=== PATIENT | male | born 1980 | race Caucasian/White ===

== ENCOUNTER 2023-01-18 08:09 | Outpatient (CLI) | payer OTHER, SELFPAY ==
[2023-01-18 20:34] LABS: Hematocrit 48.8 % (42.0-52.0); Hemoglobin 15.7 g/dL (14.0-18.0); Mean Corpuscular HGB Conc 32.2 g/dl (32-36); Mean Corpuscular Hemoglobin 31.9 pg (26-34); Mean Corpuscular Volume 99.2 fl (80-100); Mean Platelet Volume 11.1 fl (7.4-10.4); Platelet Count Result 208 k/mm3 (150-375); Red Blood Count 4.92 M/mm3 (4.6-6.20); Red Cell Distribution Width 12.6 % (11.5-14.5); White Blood Count 6.1 K/mm3 (4.5-10.0)
[2023-01-22 12:49] LABS: Testosterone Total 284 ng/dL (250-1100)
== END 2023-01-18 08:10 | disposition home or self-care (01) ==
PROVIDERS: PCP Nurse Practitioner Adult Health; Visit Provider Nurse Practitioner Adult Health
DX: E29.1 Testicular hypofunction (principal)
CPT/HCPCS: 36415; 84402; 84403; 85027

== ENCOUNTER 2023-07-08 08:01 | Outpatient (CLI) | payer OTHER, SELFPAY ==
[2023-07-08 18:29] LABS: Hematocrit 52.1 % (42.0-52.0); Hemoglobin 16.4 g/dL (14.0-18.0); Mean Corpuscular HGB Conc 31.5 g/dl (32-36); Mean Corpuscular Hemoglobin 31.1 pg (26-34); Mean Corpuscular Volume 98.9 fl (80-100); Mean Platelet Volume 10.7 fl (7.4-10.4); Platelet Count Result 297 k/mm3 (150-375); Red Blood Count 5.27 M/mm3 (4.6-6.20); Red Cell Distribution Width 13.2 % (11.5-14.5); White Blood Count 9.5 K/mm3 (4.5-10.0)
[2023-07-08 18:39] LABS: Alanine Aminotransferase 56 U/L (6-50); Albumin Level 4.6 g/dL (3.5-5.1); Alkaline Phosphatase 60 U/L (38-126); Anion Gap 4 mmol/L (8-16); Aspartate Amino Transferase 74 U/L (17-59); Blood Urea Nitrogen 23 mg/dL (9-20); Calcium 9.4 mg/dL (8.4-10.2); Carbon Dioxide 30 mmol/L (22-30); Chloride 104 mmol/L (98-107); Cholesterol 188 mg/dL (0-200); Estimated Glomerular Filt Rate 55; Glucose 95 mg/dL (65-110); HDL Direct 32 mg/dL; Potassium 4.5 mmol/L (3.4-5.0); Rheumatoid Factor < 12.0 IU/ML (<12); Sodium 138 mmol/L (137-145); Triglycerides 164 mg/dL (<150); Uric Acid 8.7 mg/dL (3.5-8.5)
[2023-07-08 18:50] LABS: LDL Cholesterol Direct 124 mg/dL
[2023-07-08 18:52] LABS: Hemoglobin A1C 5.7 % (<5.7)
[2023-07-13 01:36] LABS: ANA Cascade Screen Negative (Negative)
[2023-07-13 09:03] LABS: Testosterone Free 82.8 pg/mL (35.0-155.0); Testosterone Total 455 ng/dL (250-1100)
[2023-07-16 16:51] LABS: Estrogen 537 pg/mL (< OR = 404)
== END 2023-07-08 08:02 | disposition home or self-care (01) ==
PROVIDERS: PCP Nurse Practitioner Adult Health; Visit Provider Nurse Practitioner Adult Health
DX: E29.1 Testicular hypofunction (principal); Z86.39 Personal history of other endocrine, nutritional and metabolic disease; Z79.890 Hormone replacement therapy; M10.9 Gout, unspecified; E66.9 Obesity, unspecified; R53.83 Other fatigue; Z82.61 Family history of arthritis
CPT/HCPCS: 36415; 80053; 80061; 82607; 82672; 83036; 84153; 84402; 84403; 84443; 84550; 85027; 86038; 86225; 86235; 86364; 86430

== ENCOUNTER 2024-08-01 15:32 | Outpatient (CLI) | payer OTHER, SELFPAY ==
--- OUTSIDE RECORDS SUMMARY | 2024-08-01 18:07 | XMS_ITS | Encounter Summary ---
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
--- OUTSIDE RECORDS SUMMARY | 2024-08-01 18:07 | XMS_ITS | Clinical Summary ---
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 Gender Identity Not on file Sexual Orientation Not on file Last Filed Vital Signs Vital Sign Reading Time Taken Comments Blood Pressure 126/82 06/04/2017 8:01 AM PROCESS HELPER Pulse 68 06/04/2017 8:01 AM PROCESS HELPER Temperature - - Respiratory Rate - - Oxygen Saturation - - Inhaled Oxygen Concentration - - Weight 133.8 kg (295 lb) 06/04/2017 8:01 AM PROCESS HELPER Height 185.4 cm (6' 1 ) 06/04/2017 8:01 AM PROCESS HELPER Body Mass Index 38.92 06/04/2017 8:01 AM PROCESS HELPER Plan of Treatment Health Maintenance Due Date Last Done Comments Colorectal Cancer Screening Colonoscopy (10 Years) 1978 Annual Physical 1981 Hepatitis C 1996 Hepatitis B Vaccines (1 of 3 - 19+ 3-dose series) 1997 COVID-19 Vaccine (2023-2 5 season) 2024 Influenza Adult (#1) 2024 DTaP, Tdap and Td Vaccines ( 2 - Td or Tdap) 05/14/2026 05/14/2016 HPV Vaccines Aged Out No longer eligi ble based on patient's age to complete this topic Meningococcal B Vaccine Aged Out No l onger eligible based on patient's age to complete this topic Meningococcal Vaccine Aged Out No gilmer becky eligible based on patient's age to complete this topic Pneumococcal Vaccine: Pediat rics (0 to 5 Years) and At-Risk Patients (6 to 64 Years) Aged Out No longer eligi ble based on patient's age to complete this topic RSV Immunizations Under 20 Months Aged Out No longer eligible based on patient's age to complete this topic Care Teams Heating Repair Technician Relationship Specialty Start Date End Date Lyndsay Rivera DO [address] [place] [address] PCP - General FAMILY PRACTICE 10/09/15
--- OUTSIDE RECORDS SUMMARY | 2024-08-01 18:07 | XMS_ITS | Clinical Summary ---
Author Organization [facility] Address [address] [facility] [place] [address] Care Team Providers Care Clinical Nursing Director Name Role Phone Rama Samuel MD Primary Care Provider [phone] Source Comments [facility],non-owned Affiliates and Associated Physician Practices is amultiple site organization consisting of ambulatory clinics and hospital sitesin [place], [place], [place] and [place]. This disclosure is being madepursuant to the Care Everywhere program and may not contain all information available regarding this patient. Last updated 18.[facility] Allergies Active Allergy Reactions Criticality Noted Date Comments Codeine Rash Medium 02/09/2018 Medications * Be aware that medications may not be up to date on this document. Alwaysverify current medications with the patient. Medication Sig Dispensed Refills Start Date End Date Status allopurinol (ZYLOPRIM) 300 MG tablet Take 1 tablet by mouth once daily 90 tablet 3 02/09/2018 Active metoprolol tartrate (LOPRESSOR) 25 MG tablet TAKE 1 TABLET BY MOUTH TWICE DAILY 60 tablet 5 08/15/2018 Active omeprazole (PRILOSEC) 40 MG capsule TAKE 1 CAPSULE BY MOUTH DAILY BEFORE BREAKFAST 90 capsule 1 12/13/2018 Active lisinopril (PRINIVIL; ZESTRIL) 20 MG tablet TAKE 1 TABLET BY MOUTH EVERY DAY 90 tablet 1 01/13/2019 Active Active Problems Problem Noted Date Diagnosed Date Chest pain, unspecified 12/14/2018 Essential hypertension 03/13/2018 History of lymphoma 03/13/2018 Family history of hypertrophic cardiomyopathy Gout of multiple sites 03/13/2018 Immunizations Name Administration Dates Next Due INFLUENZA VACCINE, QUADR. (F LUZONE; FLULAVAL; FLUARIX; AFLURIA QUADRIVALENT; 6MO+), 0.5 ML (IIV4) 02/09/2018 TDAP (7yrs+) 06/08/2016 Family History Medical History Relation Name Comments Arthritis - Rheumatoid Father Cancer - Liver Maternal Grandfather Gout Mother Other Mother afib Arthritis - Rheumatoid Paternal Grandmother Relation Name Status Comments Father Alive Maternal Grandfather Mother Paternal Grandmother Social History Tobacco Use Types Packs/Day Years Used Date Smoking Tobacco: Never Smokeless Tobacco: Never Alcohol Use Standard Drinks/Week Comments No 0 (1 standard drink = 0.6 oz pur e alcohol) Sex and Gender Information Value Date Recorded Sex Assigned at Not on file Gender Identity Male 02/09/2018 8:44 AM CDT Sexual Orientation Not on file Last Filed Vital Signs Vital Sign Reading Time Taken Comments Blood Pressure 134/70 12/20/2018 10:33 AM CDT Pulse 65 12/20/2018 10:33 AM CDT Temperature - - Respiratory Rate - - Oxygen Saturation 98% 12/20/2018 10:33 AM CDT Inhaled Oxygen Concentration - - Weight 135.6 kg (299 lb) 12/20/2018 10:33 AM CDT Height 193 cm (6' 4 ) 12/20/2018 10:33 AM CDT Body Mass Index 36.4 12/20/2018 10:33 AM CDT Plan of Treatment Health Maintenance Due Date Last Done Comments COLOGUARD (AGES 45-75) - COL ON CA SCREENING 1978 COLON MONITORING 1978 COLONOSCOPY - COLON CA SCREENING 1978 CT COLONOGRAPHY - COLON CA SCREENING 1978 Colorectal Cancer Screening 1978 FIT - COLON CA SCREENING 1978 FLEX SIG - COLON CA SCREENING 1978 HIV SCREENING 1993 HEPATITIS C SCREENING 07/11/1996 HEPATITIS B VACCINE (1 of 3 - 19+ 3-dose series) 1997 SCREENING FOR DIABETES 12/02/2021 9, 02/09/2018 LIPID TESTING 12/03/2023 12/02/2018, 02/09/2018 COVID-19 VACCINE ( - 2023-2 5 season) 2024 INFLUENZA VACCINE (#1) 2024 02/09/2018 DEPRESSION SCREENING 05/10/2024 DTAP/TDAP/TD VACCINES (2 - T d or Tdap) 06/08/2026 06/08/2016 ZOSTER VACCINE (1 of 2) 2028 HIB VACCINE Aged Out No longer eligi ble based on patient's age to complete this topic HPV VACCINE Aged Out No longer eligi ble based on patient's age to complete this topic MENINGOCOCCAL (Group B) VACCINE SHARED DECISION-MAKING Aged Out No longer eligible based on patient's age to complete this topic MENINGOCOCCAL GROUPS A/C/Y/W VACCINE Aged Out No longer eligible b ased on patient's age to complete this topic PNEUMOCOCCAL VACCINE Aged Out No long er eligible based on patient's age to complete this topic Goals Goal Patient Goal Type Associated Problems Recent Progress Patient-Stated? Author Have labs drawn Lifestyle Juana Van LPN Procedures Procedure Name Priority Date/Time Associated Diagnosis Comments COMPREHENSIVE METABOLIC PANEL Routine 12/02/2018 1:33 PM CDT Essential hypertension LIPID PROFILE Routine 12/02/2018 1:33 PM CDT Essential hypertension from Last 3 Months or Most Recently Relevant to Health Maintenance Results * (ABNORMAL) COMPREHENSIVE METABOLIC PANEL (12/02/2018 1:33 PM CDT) Glucose 116(H) 74 - 106 mg/dL [facility] ACCOUNT BILL BUN 16 8.9 - 20.6 mg/dL [facility] ACCOUNT BILL Creatinine 1.24(H) 0.73 - 1.18 mg/dL [facility] ACCOUNT BILL eGFR by MDRD >60 >60 mL/min/1.7 3m2 [facility] ACCOUNT BILL eGFR by MDRD >60 >60 mL/min/1.7 3m2 [facility] ACCOUNT BILL Sodium 138 136 - 145 mmol/L [facility] ACCOUNT BILL Potassium 4.4 3.5 - 5.1 mmol/L [facility] ACCOUNT BILL Chloride 104 98 - 107 mmol/L [facility] ACCOUNT BILL CO2 23 23 - 31 mmol/L [facility] ACCOUNT BILL Calcium 9.6 8.4 - 10.2 mg/dL [facility] ACCOUNT BILL Protein Total 7.9 6.4 - 8.3 gm/dL [facility] ACCOUNT BILL Albumin 4.8 3.5 - 5.2 gm/dL [facility] ACCOUNT BILL Bilirubin Total 0.5 0.2 - 1.2 mg/dL [facility] ACCOUNT BILL Alkaline Phosphatase 106 40 - 150 U/L [facility] ACCOUNT BILL AST 45(H) 5 - 34 U/L [facility] ACCOUNT BILL ALT 67(H) 13 - 61 U/L [facility] ACCOUNT BILL Blood BLOOD SPECIMEN / Unknown 12/02/2018 1:33 PM CDT 12/02/2018 Narrative Resulting Agency Comment Lab Testing performed at: [address] Abdiel [place]BAR[place] [id number] Rama Samuel MD LAB - CHEMISTRY ALICE SPAULDING [facility] ACCOUNT BILL [address] [place] [address] * (ABNORMAL) LIPID PROFILE (12/02/2018 1:33 PM CDT) Cholesterol 167 <200 mg/dL [facility] ACCOUNT BILL Triglycerides 500(H) <150 mg/dL [facility] ACCOUNT BILL HDL Cholesterol 28(L) >40 mg/dL [facility] ACCOUNT BILL VLDL Calculated <=30 mg/dL [facility] ACCOUNT BILL Comment: Unable to calculate LDL due to elevated Triglycerides, please consider ordering a Direct LDL. Not calculated Unable to calculate LDL due to elevated Triglycerides, please consider ordering a Direct LDL. Unable to calculate LDL due to elevated Triglycerides, please consider ordering a Direct LDL. LDL Calculated <130 mg/dL [facility] ACCOUNT BILL Comment: Not calculated Unable to calculate LDL due to elevated Triglycerides, please consider ordering a Direct LDL. Blood BLOOD SPECIMEN / Unknown 12/02/2018 1:33 PM CDT 12/02/2018 Narrative Resulting Agency Comment Lab Testing performed at: [place] [address] [address] [place] [id number] Rama Samuel MD LAB - CHEMISTRY ALICE S[place]ULDING [facility] ACCOUNT BILL [address] [place] [address] from Last 3 Months or Most Recently Relevant to Health Maintenance Care Teams Clinical Nursing Director Relationship Specialty Start Date End Date Rama Samuel MD [address] [place] [address] PCP - General Family Medicine 09/18/20
--- OUTSIDE RECORDS SUMMARY | 2024-08-01 18:07 | XMS_ITS | Data Portability ---
Author Organization [place] [facility] [employer] Main Office Address [address] [place] [address] Assessment No assessment recorded. Plan of Treatment Reminders Order Date Submit Date Provider Last Modified By Organization Details Last Modified Time Details Appointments None recorded. Lab testosteron e, free + total, serum 2022 023 [facility], [address], [place], [address], 3 17:30:10 CBC w/ auto diff 2022 023 [facility], [address], [place], [address], 3 17:30:12 estradiol, serum 2022 023 [employer], [address], [place], [address], 3 17:34:55 insulin, serum 2022 023 [facility], [address], [place], [address], 3 17:30:12 HbA1c (hemoglobin A1c), blood 2022 023 [facility], [address], [place], [address], 3 17:30:10 CMP, serum or plasma 2022 023 [facility], [address], [place], [address], 3 17:30:12 lipid panel, serum 2022 023 [facility], [address], [place], [address], 3 17:30:09 TSH, serum or plasma 2022 023 [facility], [address], [place], [address], 3 17:38:16 T4, free, serum 2022 023 [facility], [address], [place], [address], 3 17:38:15 dexamethaso ne, serum 2022 023 [facility], [address], [place], [address], 3 00:40:47 cortisol, am, serum 2022 023 [facility], [address], [place], [address], 3 00:40:51 TSH + free T4, serum 2022 023 [facility], [address], [place], [address], 3 00:40:54 thyroid peroxidase (tpo) Ab, serum 2022 023 [facility], [address], [place], [address], 3 00:40:49 T3, free, serum or plasma 2022 023 [facility], [address], [place], [address], 3 00:40:52 insulin, serum 2022 023 [facility], [address], [place], [address], 3 00:40:50 prolactin, serum 2022 023 [facility], [address], [place], [address], 3 00:40:51 testosteron e, free + total, serum 2022 023 [facility], [address], [place], [address], 3 00:40:44 lh + FSH, serum 2022 023 [facility], [address], [place], [address], 3 00:40:53 shbg (sex hormone-bin ding globulin), serum 2022 023 [facility], [address], [place], [address], 3 17:33:16 KEVIN (antinuclea r antibodies) screen, ifa, serum 2022 023 [facility], [address], [place], [address], 3 00:40:49 iron + TIBC + ferritin, serum 2022 023 [facility], [address], [place], [address], 3 00:40:43 hepatitis panel (A+B+C), acute, serum 2022 023 [facility], [address], [place], [address], 3 00:40:44 CMP, serum or plasma 2022 023 [facility], [address], [place], [address], 3 00:40:45 mitochondri al M2 igg Ab, serum 2022 023 [facility], [address], [place], [address], 3 00:40:47 liver-kidne y microsome type 1 igg Ab, serum [address] [facility], [address], [place], [address], 3 00:40:46 CBC w/ auto diff [address] [facility], [address], [place], [address], 3 00:40:48 Referral None recorded. Procedures None recorded. Surgeries None recorded. Imaging US, liver 2022 023 [email or web address] Not available 08:18:10 Medication Orders Contrave 8 mg-90 mg tablet,exte nded release 2022 023 [id number], [address], [place], [id number], 3 17:30:52 metformin ER 500 mg tablet,exte nded release 24 hr 2022 023 [id number], [address], [place], [place], [id number], 3 17:29:15 dexamethaso ne 1 mg tablet 2022 023 [id number], [address], [place], [place], [id number], 3 17:12:14 Patient TargetsNo targets recorded. Patient Instructions Encounter Date Encounter Id Patient Instructions Last Modified By Organization Details Last Modified Time 07/08/2022 [id number] mo fu adhd, htn, lipid, b12 def, testosterone [email or web address] Not available 07/08/2022 18:39:34 Reason for Referral None Reported. Results Created Date Observation Date Name Description Value Unit Range Abnormal Flag Note LastModifiedBy Organization Detail LastModifiedTime 04/23/20 22 04/25/2022 HEMOG LOBIN A1C hemoglobin A1C 5.4 %_of_ total _HGB <5.7 normal For the purpo se of cristofer moore for the prese nce of diabe olesya: <5.7% Consi stent with the absen ce of diabe olesya 5.7-6 .4% Consi stent with incre ased risk for diabe olesya (pred iabet es) > or =6.5% Consi stent with diabe olesya This assay resul t is consi stent with a decre ased risk of diabe olesya. Curre ntly, no conse nsus exist s marlen mccray use of hemog lobin A1c for diagn osis of diabe olesya in child [place]. Accor ding to Ameri can Diabe olesya Assoc iatio n (ADA) guide lines , hemog lobin A1c <7.0% repre sents optim al contr ol in non-p regna nt diabe tic patie nts. Diffe rent metri cs may apply to speci fic patie nt popul ation s. [facility] in Diabe olesya(A DA). Not Available [address] [address] [place], [address], 04/25/2022 01:46:22 04/23/20 22 04/25/2022 VITAM IN D,25- OH,TO SEVERIANO,I A vitamin D,25-oh,tota l,ia 30 NG/mL 30-100 normal Vitam in D Statu s 25-OH Vitam in D: Defic iency : <20 ng/mL Insuf ficie ncy: 20 - 29 ng/mL Optim al: > or = 30 ng/mL For 25-OH Vitam in D testi ng on patie nts on D2-mallory pplem entat ion and patie nts for whom quant itati on of D2 and D3 fract ions is requi red, the [facility] eD(TM ) 25-OH VIT D, (D2,D 3), LC/MS /MS is recom michael d: order code 00384 (viky ents >2yrs ). See Note 1 Note 1 For addit ional infor tarah reyes e refer to http: //[facility] macario Jaquez stDia gnost ics.c om/fa q/FAQ 199 (This link is being provi ded for infor lynda sanders/ shiraz espitia purpo ses only. ) Not Available [address] [address] [place], [address], 04/25/2022 01:46:21 04/23/20 22 04/25/2022 TSH W/REF BOB TO FT4 TSH w/reflex to FT4 1.43 mIU/L 0.40-4 .50 normal Not Available [facility] [address] [address] [place], [address], 04/25/2022 01:46:21 04/23/20 22 04/25/2022 TSH W/REF BOB TO FT4 TSH w/reflex to FT4 1.43 mIU/L 0.40-4 .50 normal Not Available [facility] [address] [address] [place], [address], 04/25/2022 01:46:21 04/23/20 22 04/25/2022 VITAM IN B12/F OLATE , SERUM PANEL vitamin B12 355 pg/mL 200-11 00 normal Pleas e Note: Altho ugh the refer ence range for vitam in B12 is 200-1 100 pg/mL , it has been repor brenda that betwe en 5 and 10% of patie nts with value s betwe en 200 and 400 pg/mL may exper ience neuro psych iatri c and hemat ologi c abnor malit ies due to occul t B12 defic iency ; less than 1% of patie nts with value s above 400 pg/mL will have sympt oms. Not Available [employer] [address], [address], 04/25/2022 01:46:20 04/23/20 22 04/25/2022 VITAM IN B12/F OLATE , SERUM PANEL folate, serum 6.2 NG/mL normal Refer ence Range Low: <3.4 Borde rline : 3.4-5 .4 Johanna l: >5.4 Not Available [employer] [address], [address], 04/25/2022 01:46:20 04/23/20 22 04/25/2022 CBC (INCL UDES DIFF/ PLT) white blood cell count 11.3 thous and/u L 3.8-10 .8 high Not Available [employer] [address], [address], 04/25/2022 01:46:19 04/23/20 22 04/25/2022 CBC (INCL UDES DIFF/ PLT) red blood cell count 5.53 adenike on/uL 4.20-5 .80 normal Not Available [facility] [address], [address], 04/25/2022 01:46:19 04/23/20 22 04/25/2022 CBC (INCL UDES DIFF/ PLT) hemoglobin 16.7 g/dL 13.2-1 7.1 normal Not Available [address], [address], 04/25/2022 01:46:19 04/23/20 22 04/25/2022 CBC (INCL UDES DIFF/ PLT) hematocrit 49.9 % 38.5-5 0.0 normal Not Available [address], [address], 04/25/2022 01:46:19 04/23/20 22 04/25/2022 CBC (INCL UDES DIFF/ PLT) MCV 90.2 fL 80.0-1 00.0 normal Not Available [address], [address], 04/25/2022 01:46:19 04/23/20 22 04/25/2022 CBC (INCL UDES DIFF/ PLT) MCH 30.2 pg 27.0-3 3.0 normal Not Available [address], [address], 04/25/2022 01:46:19 04/23/20 22 04/25/2022 CBC (INCL UDES DIFF/ PLT) MCHC 33.5 g/dL 32.0-3 6.0 normal Not Available [address], [address], 04/25/2022 01:46:19 04/23/20 22 04/25/2022 CBC (INCL UDES DIFF/ PLT) RDW 12.1 % 11.0-1 5.0 normal Not Available [address], [address], 04/25/2022 01:46:19 04/23/20 22 04/25/2022 CBC (INCL UDES DIFF/ PLT) platelet count 230 thous and/u L 140-40 0 normal Not Available [address], [address], 04/25/2022 01:46:19 04/23/20 22 04/25/2022 CBC (INCL UDES DIFF/ PLT) MPV 11.5 fL 7.5-12 .5 normal Not Available [address], [address], 04/25/2022 01:46:19 04/23/20 22 04/25/2022 CBC (INCL UDES DIFF/ PLT) absolute neutrophils 7605 cells /uL 1500-7 800 normal Not Available [address], [address], 04/25/2022 01:46:19 04/23/20 22 04/25/2022 CBC (INCL UDES DIFF/ PLT) absolute lymphocytes 2588 cells /uL 850-39 00 normal Not Available [address], [address], 04/25/2022 01:46:19 04/23/20 22 04/25/2022 CBC (INCL UDES DIFF/ PLT) absolute monocytes 825 cells /uL 200-95 0 normal Not Available [address], [address], 04/25/2022 01:46:19 04/23/20 22 04/25/2022 CBC (INCL UDES DIFF/ PLT) absolute eosinophils 215 cells /uL 15-500 normal Not Available [address], [address], 04/25/2022 01:46:19 04/23/20 22 04/25/2022 CBC (INCL UDES DIFF/ PLT) absolute basophils 68 cells /uL 0-200 normal Not Available [address], [address], 04/25/2022 01:46:19 04/23/20 22 04/25/2022 CBC (INCL UDES DIFF/ PLT) neutrophils 67.3 % normal Not Available [address], [address], 04/25/2022 01:46:19 04/23/20 22 04/25/2022 CBC (INCL UDES DIFF/ PLT) lymphocytes 22.9 % normal Not Available [address], [address], 04/25/2022 01:46:19 04/23/20 22 04/25/2022 CBC (INCL UDES DIFF/ PLT) monocytes 7.3 % normal Not Available [address], [address], 04/25/2022 01:46:19 04/23/20 22 04/25/2022 CBC (INCL UDES DIFF/ PLT) eosinophils 1.9 % normal Not Available [address], [address], 04/25/2022 01:46:19 04/23/20 22 04/25/2022 CBC (INCL UDES DIFF/ PLT) basophils 0.6 % normal Not Available [address], [address], 04/25/2022 01:46:19 04/23/20 22 04/25/2022 CBC (INCL UDES DIFF/ PLT) white blood cell count 11.3 thous and/u L 3.8-10 .8 high Not Available [address], [address], 04/25/2022 01:46:19 04/23/20 22 04/25/2022 CBC (INCL UDES DIFF/ PLT) red blood cell count 5.53 adenike on/uL 4.20-5 .80 normal Not Available [address], [address], 04/25/2022 01:46:19 04/23/20 22 04/25/2022 CBC (INCL UDES DIFF/ PLT) hemoglobin 16.7 g/dL 13.2-1 7.1 normal Not Available [address], [address], 04/25/2022 01:46:19 04/23/20 22 04/25/2022 CBC (INCL UDES DIFF/ PLT) hematocrit 49.9 % 38.5-5 0.0 normal Not Available [address], [address], 04/25/2022 01:46:19 04/23/20 22 04/25/2022 CBC (INCL UDES DIFF/ PLT) MCV 90.2 fL 80.0-1 00.0 normal Not Available [address], [address], 04/25/2022 01:46:19 04/23/20 22 04/25/2022 CBC (INCL UDES DIFF/ PLT) MCH 30.2 pg 27.0-3 3.0 normal Not Available [address], [address], 04/25/2022 01:46:19 04/23/20 22 04/25/2022 CBC (INCL UDES DIFF/ PLT) MCHC 33.5 g/dL 32.0-3 6.0 normal Not Available [address], [address], 04/25/2022 01:46:19 04/23/20 22 04/25/2022 CBC (INCL UDES DIFF/ PLT) RDW 12.1 % 11.0-1 5.0 normal Not Available [address], [address], 04/25/2022 01:46:19 04/23/20 22 04/25/2022 CBC (INCL UDES DIFF/ PLT) platelet count 230 thous and/u L 140-40 0 normal Not Available [address], [address], 04/25/2022 01:46:19 04/23/20 22 04/25/2022 CBC (INCL UDES DIFF/ PLT) MPV 11.5 fL 7.5-12 .5 normal Not Available [address], [address], 04/25/2022 01:46:19 04/23/20 22 04/25/2022 CBC (INCL UDES DIFF/ PLT) absolute neutrophils 7605 cells /uL 1500-7 800 normal Not Available [address], [address], 04/25/2022 01:46:19 04/23/20 22 04/25/2022 CBC (INCL UDES DIFF/ PLT) absolute lymphocytes 2588 cells /uL 850-39 00 normal Not Available [address], [address], 04/25/2022 01:46:19 04/23/20 22 04/25/2022 CBC (INCL UDES DIFF/ PLT) absolute monocytes 825 cells /uL 200-95 0 normal Not Available [address], [address], 04/25/2022 01:46:19 04/23/20 22 04/25/2022 CBC (INCL UDES DIFF/ PLT) absolute eosinophils 215 cells /uL 15-500 normal Not Available [address], [address], 04/25/2022 01:46:19 04/23/20 22 04/25/2022 CBC (INCL UDES DIFF/ PLT) absolute basophils 68 cells /uL 0-200 normal Not Available [address], [address], 04/25/2022 01:46:19 04/23/20 22 04/25/2022 CBC (INCL UDES DIFF/ PLT) neutrophils 67.3 % normal Not Available [address] [place], [address], 04/25/2022 01:46:19 04/23/20 22 04/25/2022 CBC (INCL UDES DIFF/ PLT) lymphocytes 22.9 % normal Not Available [address], [address], 04/25/2022 01:46:19 04/23/20 22 04/25/2022 CBC (INCL UDES DIFF/ PLT) monocytes 7.3 % normal Not Available [address], [address], 04/25/2022 01:46:19 04/23/20 22 04/25/2022 CBC (INCL UDES DIFF/ PLT) eosinophils 1.9 % normal Not Available [address], [address], 04/25/2022 01:46:19 04/23/20 22 04/25/2022 CBC (INCL UDES DIFF/ PLT) basophils 0.6 % normal Not Available [address], [address], 04/25/2022 01:46:19 04/23/20 22 04/25/2022 COMPR EHENS KIRSTEN METAB OLIC PANEL glucose 91 mg/dL 65-99 normal Fasti ng refer ence inter osmin Not Available [address], [address], 04/25/2022 01:46:19 04/23/20 22 04/25/2022 COMPR EHENS KIRSTEN METAB OLIC PANEL urea nitrogen (BUN) 21 mg/dL 7-25 normal Not Available [address], [address], 04/25/2022 01:46:19 04/23/20 22 04/25/2022 COMPR EHENS KIRSTEN METAB OLIC PANEL creatinine 1.48 mg/dL 0.60-1 .29 high Not Available [facility] [address] [address], [place], [address], 04/25/2022 01:46:19 04/23/20 22 04/25/2022 COMPR EHENS KIRSTEN METAB OLIC PANEL eGFR 60 mL/mi n/1.7 3m2 > or = 60 normal The eGFR is based on the CKD-E PI 2020 equat ion. To calcu late the new eGFR from a previ ous Creat inine or Cysta tin C resul t, go to https ://marina w.kmy lópez.o jovita/pr ofess ional s/ kdoqi /gfr% 5Fcal culat or Not Available [address], [address], 04/25/2022 01:46:19 04/23/20 22 04/25/2022 COMPR EHENS KIRSTEN METAB OLIC PANEL BUN/creatini ne ratio 14 (calc ) 6-22 normal Not Available [address], [address], 04/25/2022 01:46:19 04/23/20 22 04/25/2022 COMPR EHENS KIRSTEN METAB OLIC PANEL sodium 138 mmol/ L 135-14 6 normal Not Available [address], [address], 04/25/2022 01:46:19 04/23/20 22 04/25/2022 COMPR EHENS KIRSTEN METAB OLIC PANEL potassium 4.7 mmol/ L 3.5-5. 3 normal Not Available [address], [address], 04/25/2022 01:46:19 04/23/20 22 04/25/2022 COMPR EHENS KIRSTEN METAB OLIC PANEL chloride 101 mmol/ L 98-110 normal Not Available [address], [address], 04/25/2022 01:46:19 04/23/20 22 04/25/2022 COMPR EHENS KIRSTEN METAB OLIC PANEL carbon dioxide 28 mmol/ L 20-32 normal Not Available [address], [address], 04/25/2022 01:46:19 04/23/20 22 04/25/2022 COMPR EHENS KIRSTEN METAB OLIC PANEL calcium 10.0 mg/dL 8.6-10 .3 normal Not Available [address], [address], 04/25/2022 01:46:19 04/23/20 22 04/25/2022 COMPR EHENS KIRSTEN METAB OLIC PANEL protein, total 7.7 g/dL 6.1-8. 1 normal Not Available [address], [address], 04/25/2022 01:46:19 04/23/20 22 04/25/2022 COMPR EHENS KIRSTEN METAB OLIC PANEL albumin 4.9 g/dL 3.6-5. 1 normal Not Available [address], [address], 04/25/2022 01:46:19 04/23/20 22 04/25/2022 COMPR EHENS KIRSTEN METAB OLIC PANEL alkaline phosphatase 58 U/L 36-130 normal Not Available [address], [address], 04/25/2022 01:46:19 04/23/20 22 04/25/2022 COMPR EHENS KIRSTEN METAB OLIC PANEL globulin 2.8 g/dL_ (calc ) 1.9-3. 7 normal Not Available [address], [address], 04/25/2022 01:46:19 04/23/20 22 04/25/2022 COMPR EHENS KIRSTEN METAB OLIC PANEL albumin/glob ulin ratio 1.8 (calc ) 1.0-2. 5 normal Not Available [address], [address], 04/25/2022 01:46:19 04/23/20 22 04/25/2022 COMPR EHENS KIRSTEN METAB OLIC PANEL bilirubin, total 0.7 mg/dL 0.2-1. 2 normal Not Available [address], [address], 04/25/2022 01:46:19 04/23/20 22 04/25/2022 COMPR EHENS KIRSTEN METAB OLIC PANEL AST 37 U/L 10-40 normal Not Available [address], [address], 04/25/2022 01:46:19 04/23/20 22 04/25/2022 COMPR EHENS KIRSTEN METAB OLIC PANEL ALT 52 U/L 9-46 high Not Available [address], [address], 04/25/2022 01:46:19 04/23/20 22 04/25/2022 COMPR EHENS KIRSTEN METAB OLIC PANEL glucose 91 mg/dL 65-99 normal Fasti ng refer ence inter osmin Not Available [address], [address], 04/25/2022 01:46:19 04/23/20 22 04/25/2022 COMPR EHENS KIRSTEN METAB OLIC PANEL urea nitrogen (BUN) 21 mg/dL 7-25 normal Not Available [address], [address], 04/25/2022 01:46:19 04/23/20 22 04/25/2022 COMPR EHENS KIRSTEN METAB OLIC PANEL creatinine 1.48 mg/dL 0.60-1 .29 high Not Available [address], [address], 04/25/2022 01:46:19 04/23/20 22 04/25/2022 COMPR EHENS KIRSTEN METAB OLIC PANEL eGFR 60 mL/mi n/1.7 3m2 > or = 60 normal The eGFR is based on the CKD-E PI 2020 equat ion. To calcu late the new eGFR from a previ ous Creat inine or Cysta tin C resul t, go to https ://marina gottlieb.kym lópez.o jovita/pr ofess ciroal s/ kdoqi /gfr% 5Fcal culat or Not Available [address] [address] [place], [address], 04/25/2022 01:46:19 04/23/20 22 04/25/2022 COMPR EHENS KIRSTEN METAB OLIC PANEL BUN/creatini ne ratio 14 (calc ) 6-22 normal Not Available [address] [address] [place], [address], 04/25/2022 01:46:19 04/23/20 22 04/25/2022 COMPR EHENS KIRSTEN METAB OLIC PANEL sodium 138 mmol/ L 135-14 6 normal Not Available [address], [address], 04/25/2022 01:46:19 04/23/20 22 04/25/2022 COMPR EHENS KIRSTEN METAB OLIC PANEL potassium 4.7 mmol/ L 3.5-5. 3 normal Not Available [address], [address], 04/25/2022 01:46:19 04/23/20 22 04/25/2022 COMPR EHENS KIRSTEN METAB OLIC PANEL chloride 101 mmol/ L 98-110 normal Not Available [address], [address], 04/25/2022 01:46:19 04/23/20 22 04/25/2022 COMPR EHENS KIRSTEN METAB OLIC PANEL carbon dioxide 28 mmol/ L 20-32 normal Not Available [address] [place], [address], 04/25/2022 01:46:19 04/23/20 22 04/25/2022 COMPR EHENS KIRSTEN METAB OLIC PANEL calcium 10.0 mg/dL 8.6-10 .3 normal Not Available [address] [address] [place], [address], 04/25/2022 01:46:19 04/23/20 22 04/25/2022 COMPR EHENS KIRSTEN METAB OLIC PANEL protein, total 7.7 g/dL 6.1-8. 1 normal Not Available [address], [address], 04/25/2022 01:46:19 04/23/20 22 04/25/2022 COMPR EHENS KIRSTEN METAB OLIC PANEL albumin 4.9 g/dL 3.6-5. 1 normal Not Available [address], [address], 04/25/2022 01:46:19 04/23/20 22 04/25/2022 COMPR EHENS KIRSTEN METAB OLIC PANEL alkaline phosphatase 58 U/L 36-130 normal Not Available [address] [address] [place], [address], 04/25/2022 01:46:19 04/23/20 22 04/25/2022 COMPR EHENS KIRSTEN METAB OLIC PANEL globulin 2.8 g/dL_ (calc ) 1.9-3. 7 normal Not Available [address], [address], 04/25/2022 01:46:19 04/23/20 22 04/25/2022 COMPR EHENS KIRSTEN METAB OLIC PANEL albumin/glob ulin ratio 1.8 (calc ) 1.0-2. 5 normal Not Available [address], [address], 04/25/2022 01:46:19 04/23/20 22 04/25/2022 COMPR EHENS KIRSTEN METAB OLIC PANEL bilirubin, total 0.7 mg/dL 0.2-1. 2 normal Not Available [address] [address] [place], [address], 04/25/2022 01:46:19 04/23/20 22 04/25/2022 COMPR EHENS KIRSTEN METAB OLIC PANEL AST 37 U/L 10-40 normal Not Available [address] [address] [place], [address], 04/25/2022 01:46:19 04/23/20 22 04/25/2022 COMPR EHENS KIRSTEN METAB OLIC PANEL ALT 52 U/L 9-46 high Not Available [address] [address] [place], [address], 04/25/2022 01:46:19 04/23/20 22 04/25/2022 LIPID PANEL , [place] LDL-choleste rol 140 mg/dL _(benjy c) high Refer ence range : <100 Jose able range <100 mg/dL for prima ry preve ntion ; <70 mg/dL for patie nts with CHD or diabe tic patie nts with > or = 2 CHD risk facto rs. LDL-C is now calcu lated using the Colleen n-Hop kins calcu juancarlos n, which is a valid ated novel oumar estrella accur acy than the Fried katerina equat ion in the estim ation of LDL-C . Colleen hodges SS et al. MARCIANO. 2013; 310(1 9): 2061- 2068 (http ://ed ucati on.Qu Estefani vitalRange Fuelss. com/f aq/FA Q164) Not Available [address] [address] [place], [address], 04/25/2022 01:46:15 04/23/20 22 04/25/2022 LIPID PANEL , [place] cholesterol, total 212 mg/dL <200 high Not Available [address] [address] [place], [address], 04/25/2022 01:46:15 04/23/20 22 04/25/2022 LIPID PANEL , [place] HDL cholesterol 40 mg/dL > or = 40 normal Not Available [address] [address] [place], [address], 04/25/2022 01:46:15 04/23/20 22 04/25/2022 LIPID PANEL , [place] triglyceride s 186 mg/dL <150 high Not Available [facility] [address] [address] [place], [address], 04/25/2022 01:46:15 04/23/20 22 04/25/2022 LIPID PANEL , [place] chol/HDLC ratio 5.3 (calc ) <5.0 high Not Available [address] [address] [place], [address], 04/25/2022 01:46:15 04/23/20 22 04/25/2022 LIPID PANEL , [place] non HDL cholesterol 172 mg/dL _(benjy c) <130 high For patie nts with diabe olesya plus 1 major ASCVD risk facto r, treat ing to a non-H DL-C goal of <100 mg/dL (LDL- C of <70 mg/dL ) is consi dered a mataa [place] c optio n. Not Available [address] [address] [place], [address], 04/25/2022 01:46:15 04/23/20 22 04/25/2022 LIPID PANEL , [place] chol/HDLC ratio 5.3 (calc ) <5.0 high Not Available [address] [address] [place], [address], 04/25/2022 01:46:15 04/23/20 22 04/25/2022 LIPID PANEL , [place] cholesterol, total 212 mg/dL <200 high Not Available [facility] [address] [address] [address], [place], [address], 04/25/2022 01:46:15 04/23/20 22 04/25/2022 LIPID PANEL , [place] HDL cholesterol 40 mg/dL > or = 40 normal Not Available [facility] [address] [place], [address], 04/25/2022 01:46:15 04/23/20 22 04/25/2022 LIPID PANEL , [place] triglyceride s 186 mg/dL <150 high Not Available [facility] [address] [place], [address], 04/25/2022 01:46:15 04/23/20 22 04/25/2022 LIPID PANEL , [place] LDL-choleste rol 140 mg/dL _(benjy c) high Refer ence range : <100 Jose able range <100 mg/dL for prima ry preve ntion ; <70 mg/dL for patie nts with CHD or diabe tic patie nts with > or = 2 CHD risk facto rs. LDL-C is now calcu lated using the Colleen n-Hop kins margaritou juancarlos n, which is a valid ated novel oumar [place] acy than the Fried k[place]ina equat ion in the estim ation of LDL-C . Colleen hodges SS et al. MARCIANO. 2013; 310(1 9): 2061- 2068 (http ://ed ucati on.Qu Estefani linder tics. com/f aq/FA Q164) Not Available [facility] [address] [address], [place], [address], 04/25/2022 01:46:15 04/23/20 22 04/25/2022 LIPID PANEL , [place] non HDL cholesterol 172 mg/dL _(benjy c) <130 high For patie nts with diabe olesya plus 1 major ASCVD risk facto r, treat ing to a non-H DL-C goal of <100 mg/dL (LDL- C of <70 mg/dL ) is consi dered a thera peuti c optio n. Not Available [address] [address] [place], [address], 04/25/2022 01:46:15 07/30/19 23 08/09/2022 IRON, TIBC AND LEVI TIN PANEL iron, total 142 mcg/d L 50-180 normal Not Available [address] [address] [place], [address], 08/10/2022 00:40:43 07/30/19 23 08/09/2022 IRON, TIBC AND LEVI TIN PANEL iron binding capacity 376 mcg/d L_(ca lc) 250-42 5 normal Not Available [address] [address] [place], [address], 08/10/2022 00:40:43 07/30/19 23 08/09/2022 IRON, TIBC AND LEVI TIN PANEL % saturation 38 %_(ca lc) 20-48 normal Not Available [address] [address] [place], [address], 08/10/2022 00:40:43 07/30/19 23 08/09/2022 IRON, TIBC AND LEVI TIN PANEL ferritin 192 NG/mL 38-380 normal Not Available [address] [address] [place], [address], 08/10/2022 00:40:43 07/30/19 23 08/09/2022 HEPAT ITIS PANEL , ACUTE W/REF BOB TO CONFI RMATI ON hepatitis A IgM NON-RE ACTIVE non-re active normal For addit ional infor tarah reyes e refer to http: //rick barahona gnost ics.c om/fa q/FAQ (This link is being provi ded for infor lynda sanders/ shiraz espitia purpo ses only. ) Not Available [address] [address] [place], [address], 08/10/2022 00:40:44 07/30/19 23 08/09/2022 HEPAT ITIS PANEL , ACUTE W/REF BOB TO CONFI RMATI ON hepatitis B surface antigen NON-RE ACTIVE non-re active normal Not Available [address] [address] [place], [address], 08/10/2022 00:40:44 07/30/19 23 08/09/2022 HEPAT ITIS PANEL , ACUTE W/REF BOB TO CONFI RMATI ON hepatitis B core antibody (IgM) NON-RE ACTIVE non-re active normal Not Available [facility] [address] [address] [place], [address], 08/10/2022 00:40:44 07/30/1908/09/2022 HEPAT ITIS PANEL , ACUTE W/REF BOB TO CONFI RMATI ON hepatitis C antibody NON-RE ACTIVE non-re active normal Not Available [facility] [address] [place], [address], 08/10/2022 00:40:44 07/30/1908/09/2022 HEPAT ITIS PANEL , ACUTE W/REF BOB TO CONFI RMATI ON index 0.12 <1.00 normal HCV antib roro was non-r eacti ve. There is no labor atory evide nce of HCV infec tion. In most cases , no furth er actio n is requi red. Howev er, if recen t HCV expos ure is suspe cted, a test for HCV RNA (test code 81793 ) is sugge sted. For addit ional infor lynda hodges pleas e refer to http: //[facility] macario jaquez stdia gnost ics.c om/fa q/FAQ 22v1 (This link is being provi ded for infor lynda sanders/ educa kalee l purpo ses only. ) Not Available [address] [address] [place], [address], 08/10/2022 00:40:44 07/30/1908/09/2022 TESTO STERO NE, FREE, BIOAV AILAB LE AND TOTAL , MS albumin 4.8 g/dL 3.6-5. 1 Not Available [address], [address], 08/10/2022 00:40:44 07/30/19 23 08/09/2022 TESTO STERO NE, FREE, BIOAV AILAB LE AND TOTAL , MS sex hormone binding globulin 25.1 nmol/ L 10-50 Not Available [address], [address], 08/10/2022 00:40:44 07/30/19 23 08/09/2022 TESTO STERO NE, FREE, BIOAV AILAB LE AND TOTAL , MS testosterone , free 111.8 pg/mL 46.0-2 24.0 Not Available [address], [address], 08/10/2022 00:40:44 07/30/19 23 08/09/2022 TESTO STERO NE, FREE, BIOAV AILAB LE AND TOTAL , MS testosterone ,bioavailabl e 244.5 NG/dL 110.0- 575.0 Not Available [address], [address], 08/10/2022 00:40:44 07/30/19 23 08/09/2022 TESTO STERO NE, FREE, BIOAV AILAB LE AND TOTAL , MS testosterone , total, MS 649 NG/dL 250-11 00 For addit ional tarah barber e refer to https ://ed ucati on.qu estdi Handpressions. com/f aq/FA Q165 (This link is being provi ded for eve howell nal/e ducat ional purpo ses only. ) (Note ) This test was devel oped and its suzi tical perfo rmanc e luis cteri stics have been deter mined by [employer]. It has not been clear ed or appro shanice by the FDA. This assay has been valid ated pursu ant to the CLIA regul ation s and is used for clini benjy purpo ses. MDF med fusio n [address] [facility] [address] [place] [address] [phone] Warren reyes MD Not Available [address] [address] [place], [address], 08/10/2022 00:40:44 07/30/19 23 08/09/2022 COMPR EHENS KIRSTEN METAB OLIC PANEL glucose 94 mg/dL 65-139 normal Non-f astin g refer ence inter osmin Not Available [facility] [address] [address] [place], [address], 08/10/2022 00:40:45 07/30/19 23 08/09/2022 COMPR EHENS KIRSTEN METAB OLIC PANEL urea nitrogen (BUN) 25 mg/dL 7-25 normal Not Available [address] [address] [place], [address], 08/10/2022 00:40:45 07/30/19 23 08/09/2022 COMPR EHENS KIRSTEN METAB OLIC PANEL creatinine 1.40 mg/dL 0.60-1 .29 high Not Available [address] [address] [place], [address], 08/10/2022 00:40:45 07/30/19 23 08/09/2022 COMPR EHENS KIRSTEN METAB OLIC PANEL eGFR 64 mL/mi n/1.7 3m2 > or = 60 normal The eGFR is based on the CKD-E PI 2020 equat ion. To calcu late the new eGFR from a previ ous Creat inine or Cysta dedra C suri t, go to https ://marina hussein/harry raymundo s/ kdoqi /gfr% 5Fcal culat or Not Available [address] [address] [place], [address], 08/10/2022 00:40:45 07/30/19 23 08/09/2022 COMPR EHENS KIRSTEN METAB OLIC PANEL BUN/creatini ne ratio 18 (calc ) 6-22 normal Not Available [address], [address], 08/10/2022 00:40:45 07/30/19 23 08/09/2022 COMPR EHENS KIRSTEN METAB OLIC PANEL sodium 135 mmol/ L 135-14 6 normal Not Available [address], [address], 08/10/2022 00:40:45 07/30/19 23 08/09/2022 COMPR EHENS KIRSTEN METAB OLIC PANEL potassium 5.1 mmol/ L 3.5-5. 3 normal Not Available [address], [address], 08/10/2022 00:40:45 07/30/19 23 08/09/2022 COMPR EHENS KIRSTEN METAB OLIC PANEL chloride 101 mmol/ L 98-110 normal Not Available [address], [address], 08/10/2022 00:40:45 07/30/19 23 08/09/2022 COMPR EHENS KIRSTEN METAB OLIC PANEL carbon dioxide 26 mmol/ L 20-32 normal Not Available [address], [address], 08/10/2022 00:40:45 07/30/19 23 08/09/2022 COMPR EHENS KIRSTEN METAB OLIC PANEL calcium 9.9 mg/dL 8.6-10 .3 normal Not Available [address], [address], 08/10/2022 00:40:45 07/30/19 23 08/09/2022 COMPR EHENS KIRSTEN METAB OLIC PANEL protein, total 7.8 g/dL 6.1-8. 1 normal Not Available [address], [address], 08/10/2022 00:40:45 07/30/19 23 08/09/2022 COMPR EHENS KIRSTEN METAB OLIC PANEL albumin 4.7 g/dL 3.6-5. 1 normal Not Available [address], [address], 08/10/2022 00:40:45 07/30/19 23 08/09/2022 COMPR EHENS KIRSTEN METAB OLIC PANEL globulin 3.1 g/dL_ (calc ) 1.9-3. 7 normal Not Available [address], [address], 08/10/2022 00:40:45 07/30/19 23 08/09/2022 COMPR EHENS KIRSTEN METAB OLIC PANEL albumin/glob ulin ratio 1.5 (calc ) 1.0-2. 5 normal Not Available [address], [address], 08/10/2022 00:40:45 07/30/19 23 08/09/2022 COMPR EHENS KIRSTEN METAB OLIC PANEL bilirubin, total 0.7 mg/dL 0.2-1. 2 normal Not Available [address], [address], 08/10/2022 00:40:45 07/30/19 23 08/09/2022 COMPR EHENS KIRSTEN METAB OLIC PANEL alkaline phosphatase 59 U/L 36-130 normal Not Available [address] [address] [place], [address], 08/10/2022 00:40:45 07/30/19 23 08/09/2022 COMPR EHENS KIRSTEN METAB OLIC PANEL AST 25 U/L 10-40 normal Not Available [address], [address], 08/10/2022 00:40:45 07/30/19 23 08/09/2022 COMPR EHENS KIRSTEN METAB OLIC PANEL ALT 38 U/L 9-46 normal Not Available [address] [address] [place], [address], 08/10/2022 00:40:45 07/30/19 23 08/09/2022 LIVER KIDNE Y MICRO SOME (LKM- 1) AB (IGG) lkm-1 antibody (IgG) <=20.0 U <=20.0 Refer ence Range : <=20. 0 Negat kirsten 20.1- 24.9 Equiv ocal >=25. 0 Posit kirsten Anti- liver /kidn ey micro somal antib odies (Anti -LKM- 1) were previ ously teste d by indir ect immun ofluo resce nce (IF) using tam t liver /kidn ey subst rate. Ident ifica tion of a speci fic antib roro targe t as cytoc hrome P450 IID6 has led to the curre nt recom binan t based GOMEZ . Antib odies to this cytoc hrome are prese nt in appro ximat kae 70% of patie nts with autoi mmune hepat itis type 2. This antib roro is also prese nt in appro ximat kae 10% of patie nts with hepat itis C infec tion. Not Available [address] [address] [place], [address], 08/10/2022 00:40:46 07/30/1908/09/2022 MITOC HONDR IA M2 ANTIB RORO (IGG) , EIA mitochondria M2 antibody (IgG), EIA <20.0 U Refer ence Range : NEGAT KIRSTEN: < OR = 20.0 EQUIV OCAL: 20.1- 24.9 POSIT KIRSTEN: > OR = 25.0 Not Available [address] [address] [place], [address], 08/10/2022 00:40:47 07/30/19 23 08/09/2022 DEXAM ETHAS ONE dexamethason e 354 NG/dL Refer ence Range s for Dexam ethas one: Basel ine: Less than 20 ng/dL 1 mg dexam ethas one overn ight: 180-5 50 ng/dL (8:00 -10:0 0 AM) This test was ankita daniels and its suzi tical perfo rmanc e luis cteri stics have been deter mined by [facility] . It has not been clear ed or appro shanice by FDA. This assay has been valid ated pursu ant to the CLIA regul ation s and is used for clini benjy purpo ses. Not Available [employer] [address], [address], 08/10/2022 00:40:47 07/30/19 23 08/09/2022 CBC (INCL UDES DIFF/ PLT) white blood cell count 8.6 thous and/u L 3.8-10 .8 normal Not Available [employer] [address], [address], 08/10/2022 00:40:48 07/30/19 23 08/09/2022 CBC (INCL UDES DIFF/ PLT) red blood cell count 5.92 adenike on/uL 4.20-5 .80 high Not Available [employer] [address], [address], 08/10/2022 00:40:48 07/30/19 23 08/09/2022 CBC (INCL UDES DIFF/ PLT) hemoglobin 17.5 g/dL 13.2-1 7.1 high Not Available [employer] [address], [address], 08/10/2022 00:40:48 07/30/19 23 08/09/2022 CBC (INCL UDES DIFF/ PLT) hematocrit 53.1 % 38.5-5 0.0 high Not Available [facility] [address], [address], 08/10/2022 00:40:48 07/30/19 23 08/09/2022 CBC (INCL UDES DIFF/ PLT) MCV 89.7 fL 80.0-1 00.0 normal Not Available [address], [address], 08/10/2022 00:40:48 07/30/19 23 08/09/2022 CBC (INCL UDES DIFF/ PLT) MCH 29.6 pg 27.0-3 3.0 normal Not Available [address], [address], 08/10/2022 00:40:48 07/30/1908/09/2022 CBC (INCL UDES DIFF/ PLT) MCHC 33.0 g/dL 32.0-3 6.0 normal Not Available [address], [address], 08/10/2022 00:40:48 07/30/19 23 08/09/2022 CBC (INCL UDES DIFF/ PLT) RDW 11.8 % 11.0-1 5.0 normal Not Available [address], [address], 08/10/2022 00:40:48 07/30/1908/09/2022 CBC (INCL UDES DIFF/ PLT) platelet count 241 thous and/u L 140-40 0 normal Not Available [address], [address], 08/10/2022 00:40:48 07/30/19 23 08/09/2022 CBC (INCL UDES DIFF/ PLT) MPV 11.7 fL 7.5-12 .5 normal Not Available [address], [address], 08/10/2022 00:40:48 07/30/19 23 08/09/2022 CBC (INCL UDES DIFF/ PLT) absolute neutrophils 6132 cells /uL 1500-7 800 normal Not Available [address], [address], 08/10/2022 00:40:48 07/30/19 23 08/09/2022 CBC (INCL UDES DIFF/ PLT) absolute lymphocytes 1797 cells /uL 850-39 00 normal Not Available [address], [address], 08/10/2022 00:40:48 07/30/19 23 08/09/2022 CBC (INCL UDES DIFF/ PLT) absolute monocytes 542 cells /uL 200-95 0 normal Not Available [address], [address], 08/10/2022 00:40:48 07/30/19 23 08/09/2022 CBC (INCL UDES DIFF/ PLT) absolute eosinophils 86 cells /uL 15-500 normal Not Available [address], [address], 08/10/2022 00:40:48 07/30/19 23 08/09/2022 CBC (INCL UDES DIFF/ PLT) absolute basophils 43 cells /uL 0-200 normal Not Available [address], [address], 08/10/2022 00:40:48 07/30/19 23 08/09/2022 CBC (INCL UDES DIFF/ PLT) neutrophils 71.3 % normal Not Available [address], [address], 08/10/2022 00:40:48 07/30/19 23 08/09/2022 CBC (INCL UDES DIFF/ PLT) lymphocytes 20.9 % normal Not Available [address], [address], 08/10/2022 00:40:48 07/30/19 23 08/09/2022 CBC (INCL UDES DIFF/ PLT) monocytes 6.3 % normal Not Available [facility] [address] [address] [address], [place], [address], 08/10/2022 00:40:48 07/30/1908/09/2022 CBC (INCL UDES DIFF/ PLT) eosinophils 1.0 % normal Not Available [facility] [address] [address], [place], [address], 08/10/2022 00:40:48 07/30/19 23 08/09/2022 CBC (INCL UDES DIFF/ PLT) basophils 0.5 % normal Not Available [facility] [address] [address], [place], [address], 08/10/2022 00:40:48 07/30/1908/09/2022 KEVIN SCREE N, IFA, W/REF L TITER AND PATTE RN KEVIN screen, ifa NEGATI VE negati ve normal KEVIN IFA is a first line scree n for detec ting the prese nce of up to appro ximat kae 150 autoa ntibo dies in vario us autoi mmune disea ses. A negat kirsten KEVIN IFA resul t sugge sts an KEVIN-a ssoci ated autoi mmune disea se is not prese nt at this time, but is not defin itive . If there is high clini benjy suspi cion for Sjogr en's syndr ome, testi ng for anti- SS-A/ Ro antib roro shoul d be consi dered . Anti- Shantell-1 antib roro shoul d be consi dered for clini shay suspe cted infla mmato ry myopa nakia . AC-0: Negat kirsten Inter natio nal Conse nsus on KEVIN Patte rns (http s://d oi.or g/10. 1515/ [facility]- 0052) For addit ional infor tarah reyes e refer to http: //rick hodges.Que stDia gnost ics.c om/fa q/FAQ 177 (This link is being provi ded for infor lynda sanders/ educa kalee l purpo ses only. ) Not Available [facility] [address], [place], [address], 08/10/2022 00:40:49 07/30/1908/09/2022 THYRO ID PEROX IDASE ANTIB ODIES thyroid peroxidase antibodies 1 IU/mL <9 normal Not Available [facility] [address], [address], 08/10/2022 00:40:49 07/30/1908/09/2022 INSUL IN insulin 44.5 uIU/m L high Refer ence Range < or = 18.4 Risk: Optim al < or = 18.4 Moder ate NA High >18.4 Adult cardi ovasc ular event risk categ ory cut point s (opti mal, moder ate, high) are based on Insul in Refer ence Inter osmin studi es perfo rmed at [facility] in 2021. Not Available [facility] [address], [address], 08/10/2022 00:40:50 07/30/1908/09/2022 PROLA CTIN prolactin 6.1 NG/mL 2.0-18 .0 normal Not Available [facility] [address], [address], 08/10/2022 00:40:51 07/30/1908/09/2022 CORTI VALENTINO, A.M. cortisol, A.M. 0.9 mcg/d L low Refer ence Range 8 a.m. (7-9 a.m.) Speci men: 4.0-2 2.0 Not Available [facility] [address], [address], 08/10/2022 00:40:51 07/30/19 23 08/09/2022 T3, FREE T3, free 3.5 pg/mL 2.3-4. 2 normal Not Available [facility] [address], [address], 08/10/2022 00:40:52 07/30/19 23 08/09/2022 FSH AND LH FSH <0.7 mIU/m L 1.6-8. 0 low Not Available [address], [address], 08/10/2022 00:40:53 07/30/1908/09/2022 FSH AND LH LH <0.2 mIU/m L 1.5-9. 3 low Not Available [address], [address], 08/10/2022 00:40:53 07/30/1908/09/2022 TSH+F REE T4 TSH 0.93 mIU/L 0.40-4 .50 normal Not Available [address], [address], 08/10/2022 00:40:53 07/30/1908/09/2022 TSH+F REE T4 T4, free 1.3 NG/dL 0.8-1. 8 normal Not Available [address], [address], 08/10/2022 00:40:53 Result Notes None recorded. 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 Active 2021 Not Available [facility] 3 10:43:21 Leukocytosis 239683117 Active 2021 Not Available [facility] 3 10:43:21 Testosterone level below reference range 002108719 Active 2020 Not Available [facility] 3 10:43:21 Body mass index 30+ - obesity 775087273 Active 2020 Not Available [facility] 3 10:43:21 Insomnia 676135683 Active 2021 Not Available [facility] 3 10:43:21 Gastro-esopha geal reflux disease with esophagitis 453576105 Active 2020 Not Available [facility] 3 10:43:21 Attention deficit hyperactivity disorder, 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 Not Available [facility] 3 10:43:22 Hypertensive disorder 71221410 Active 2020 Not Available [facility] 3 10:43:22 Male hypogonadism 19895635 Active 2020 Not Available [facility] 3 10:43:22 Hyperlipidemi a 46367624 Active 2021 Not Available [facility] 3 10:43:22 Unable to concentrate 11750094 Active 2021 Not Available [facility] 3 10:43:22 Weight gain 8418612 Active 2022 Birgit Fajardo MD [address], [place], [address] , [facility] [employer] 3 17:29:45 Liver enzymes level above reference range 759192817 Active 2022 Birgit Fajardo MD [address], [place], [address] , [employer] 3 17:37:39 Erythrocytosi s 713931899 Active 2022 Birgit Fajardo MD [address], [place], [address] , [facility] [employer] [facility] [employer] 3 11:38:18 Hyperinsulini sm 17513807 Active 2022 Birgit Fajardo MD [address], [place], [address] , [employer] [facility] [employer] 3 17:25:59 Prediabetes 515569620 Active 2022 Birgit Fajardo MD [address], [place], [address] , [facility] [employer] [facility] [employer] 3 17:29:16 Problem Notes Documentation Provider Name and Address Organization Details Recorded Time Endocrinology Note : [facility] [address], [facility] [address]XUPQLOGS, Christopher (id #[id number], : 1980) Documents sent via fax will include the following message: This fax may contain sensitive and confidential personal health information that is being sent for the sole use of the intended recipient. Unintended recipients are directed to securely destroy any materials received. You are hereby notified that the unauthorized disclosure or other unlawful use of this fax or any personal health information is prohibited. To the extent patient information contained in this fax is subject to 42 CFR Part 2, this regulation prohibits unauthorized disclosure of these records. If you received this fax in error, please visit [email or web address] to notify the sender and confirm that the information will be destroyed. If you do not have internet access, please call to notify the sender and confirm that the information will be destroyed. Thank you for your attention and cooperation. [ID:[id number]][facility] [employer] [facility] [address] [place] [address] , Date: 07/13/2022RE: Aldo Lea, : 1980, PT ID #[id number] Fior [facility], I would like to thank you for referring Aldo Lea to our practice for consultation and evaluation of new patient , on 07/13/2022. I have enclosed a copy of the office evaluation for your records. Once again, thank you for allowing me to participate in the care of this patient. Sincerely, Electronically Signed by: BIRGIT FAJARDO MD Encounter Reason/Date new patient 07/13/2022 - 04:00PM [facility] Rashmi Sumit Infante Problems:Reviewed Problems T-cell lymphoma (clinical) - Onset: 04/22/2022 Male hypogonadism - Onset: 02/13/2021 Hyperlipidemia - Onset: 04/28/2022 Body mass index 30+ - obesity - Onset: 04/30/2021 Leukocytosis - Onset: 04/28/2022 Insomnia - Onset: 04/22/2022 Hypertensive disorder - Onset: 02/03/2021 Gastro-esophageal reflux disease with esophagitis - Onset: 02/03/2021 Decreased testosterone level - Onset: 04/30/2021 Unable to concentrate - Onset: 05/27/2021 Attention deficit hyperactivity disorder, 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 Weight gain - Onset: 07/13/2022 Elevated liver enzymes level - Onset: 07/13/2022 Allergies: Reviewed Allergies CODEINE: - rash Medications: Reviewed Medications NameDate Source dexAMETHasone 1 mg tablettake dexa tablet at 10 pm night before 8 am kxmvvzke64/06/23 prescribed Birgit Fajardo MD dextroamphetamine-amphetamin e 30 mg tabletTake 1 tablet(s) every day by oral route.06/24/22 filled MIGRATION.[id number] lisinopriL 20 mg tabletTAKE 1 TABLET BY MOUTH EVERY DAY05/12/22 filled MIGRATION.[id number] omeprazole 40 mg capsule,delayed releaseTAKE 1 CAPSULE BY MOUTH DAILY05/13/22 filled MIGRATION.[id number] Vitamin B1207/13/22 entered Josefa Velasquez RN Family History:Reviewed Family History Father - No current problems or disability Mother - Heart disease Social History:Reviewed Social History Diet and ExerciseWhat type of diet are you following?: RegularDo you have any dietary restrictions?: NoWhat is your exercise level?: Moderate (Notes: 5 days a week)Substance UseDo you or have you ever smoked tobacco?: Never smokerDo you or have you ever used any other forms of tobacco or nicotine?: NoHas tobacco cessation counseling been provided?: NoWhat is your level of alcohol consumption?: OccasionalHave you ever been counseled for unhealthy alcohol use?: NoDo you use any illicit or recreational drugs?: NoWhat is your level of caffeine consumption?: ModerateHome and EnvironmentWhere do you live?: Multi-level houseDo you have smoke and carbon monoxide detectors in your home?: YesAre you passively exposed to smoke?: NoDo you use sunscreen routinely?: YesAdvance DirectiveDo you have an advance directive?: NoWhat is your code status?: Full CodeDo you have a medical power of civil rights attorney?: NoPublic Health and TravelHave you recently traveled abroad?: NoIn the 14 days before symptom onset, have you had close contact with a laboratory-confirmed COVID-19 while that case was ill?: NoIn the 14 days before symptom onset, have you had close contact with a person who is under investigation for COVID-19 while that person was ill?: NoEducation and OccupationWhat is your 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 testosterone on file at 1114 ng/dL from 12/21H/H 17/49.9 He was initially seeing Krystal Manjarrez NP in the past- he is not able to get under 260 pounds. The lowest weight he has ever been is 258 pounds and now up to 284 pounds He is very active at work and does work out regularly. He also diets. He was on 6 months of wegovy- and maxed out at 2.4 mg - started at 270 pounds and only able to get down to 260 pounds. He did try phentermine with the wegovy and did not really help later on-the first time he tried this he did respond. He has a high tolerance for caffeine. He was on vyvanse and then insurance changed and stopped this and onto adderall. The only thing he has noticed - tracking food and macros - if he kept his carbs under 100 grams a day he does well but if over 100 grams a day ends up craving more carbs. He did keto diet in the past and only got down to 260 pounds. He has always been on the larger side- he would like to get down to 250 pounds. He never care about the scales and unable to get lower than 260 pounds. 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 He has been off work for one month. He is at the gym 5-6 days a week. He did initially try lower weight/and pliometrics initially then went to heavy weight. He does get testosterone therapy through his urologist /Dr. Ramírez- takes anastrazole every other week and shot 0.8 cc IM every week. testosterone 390 ng/dL from 07/29/79303/186/40/140Cr 1.48 mg/dLcal 10 mg/dLALT high at 52 U/LH/H 16.7/49.9B12/folate 355/6.2TSH of 1.43 uIU/mlReview of Systems: Patient reports normal appetite, no significant weight change, exercise; how often? , and no decrease in height. He reports no double vision (diplopia), no trouble with peripheral vision, not bulging (proptosis), no dry eyes, and no gritty eyes. He reports no difficulty swallowing (dysphagia), no hoarseness, no voice changes, no deepening of the voice, no lump or swelling, and no throat/neck pain. He reports no chest pain, no racing heart rate, and controlled blood pressure. He reports no shortness of breath, no snoring, and no sleep apnea. He reports no urinary frequency, not getting up at night to use bathroom, and no history of kidney stones. He reports no abdominal pain, no diarrhea, no constipation, no heartburn, no rectal bleeding, and does not use antacids. He reports no muscle weakness, no muscle aches, no joint pain, no bone pain, and no bone fractures. He reports able to brush hair without difficulty and able to get out of chair independently. He reports no dry skin, no thin skin, no bruising tendency, no acne, no purple stretch crawford, no brittle nails, and no recurrent infections or slow healing wounds. He reports no low blood sugars, no excessive thirst (polydipsia), not tired all the time, no increased hair growth (on face, chest, etc.), no hair falling out, no trouble sleeping, no temperature intolerance to heat, and no temperature intolerance to cold. He reports complies with diabetic diet, eats milk, cheese, or yogurt daily, calcium supplement, takes multivitamin, and vitamin D supplement. He reports no headaches, no confusion, no dizziness, no lightheadedness, no numbness or tingling in hands or feet, no night sweats, no confusion during middle of night, no excessive sweating, hands don't shake, and no frequent falls while walking. He reports no anxiety and no depression. He reports no trouble conceiving, no low sex drive or libido, able to reach orgasm, no painful intercourse, no hot flashes, no erectile dysfunction, no leakage of milk from nipples, and no vaginal dryness. Physical ExamConstitutional:General Appearance: not anxious/nervous, no sweating, andoverweight. Level of Distress: no acute distress. Eyes:Lids and Conjunctivae: no discharge, pallor, lid lag, or periorbital edema and non-injected. Neck:Neck: supple, trachea midline, no masses, and full range of motion. Thyroid: no enlargement or nodules and non-tender. Neck vessels: no carotid bruits or thyroid bruits. Lymph Nodes: no anterior cervical LAD, posterior cervical LAD, submandibular LAD, submental LAD, preauricular LAD, or supraclavicular LAD. Cardiovascular:Apical Impulse: not displaced. Heart Auscultation: normal S1 and S2; no murmurs, rubs, or gallops; and regular rate and rhythm. Lungs:Auscultation: no wheezing, rales/crackles, or rhonchi and breath sounds normal, good air movement, and clear to auscultation. Psychiatric:Mental Status: normal mood and affect, no diffuse anxiety or paranoid ideations, and active and alert.Procedure DocumentationNone recordedAssessment/Plan1. Weight gain-Will send for low dose dexa suppression testing to screen for hypercortisolic state. Will send for full thyroid panel and fasting glucose/insulin to screen for hyperinsulinemia as he has struggled to lose weight over the past 4-5 years (daughter is 4 years old now)- even on testosterone therapy he has not been able to lose the belly fat and hasn't gotten under 260 pounds. Will look into full hormone panel to assess for secondary causes of weight gain.R63.5: Abnormal weight gain DEXAMETHASONE dexamethasone 1 mg tablet - take dexa tablet at 10 pm night before 8 am cortisol Qty: (1) tablet Refills: 1 Pharmacy: [facility] #[id number] CORTISOL, A.M. TSH+FREE T4 THYROID PEROXIDASE ANTIBODIES T3, FREE INSULIN 2. Male hypogonadism-Send for full pituitary profile and SHBG to see if he has any underlying hyperprolactinemia or FSH/LH elevation that would warrant further imaging or workup. He was /is getting T therapy through Dr. Ramírez but as [facility] pay only and to note his H/H levels are higher range and ALT elevated on most recent labwork recommended patient obtain an iron panel and liver function profile.E29.1: Testicular hypofunction PROLACTIN TESTOSTERONE, FREE, BIOAVAILABLE AND TOTAL, MS FSH AND LH SEX HORMONE BINDING GLOBULIN 3. Elevated liver enzymes level-Send for liver u/s and autoimmune liver panel to screen for secondary causes of liver elevation. Spent up to 45 minutes preparing to see the patient (eg, review of tests), obtaining and/or reviewing separately obtained history, performing a medically appropriate examination and evaluation, counseling and educating the patient, ordering medications, tests, along with documenting clinical information in the electronic health record, independently interpreting results and communicating results to the patient. RTC in 3 months. Patient was provided a handwritten lab order which contains our fax number. If he chooses to go outside of the [facility] system to obtain labwork he was advised to provide our fax number and my information to the lab he will be obtaining labwork from in order to have his labs properly forwarded over for me to review so there is no loss of follow up due to use of outside network. He was also advised to contact our clinic informing us that he has completed his labwork so we are aware we will need to reach out to the appropriate laboratory to request his results be forwarded to us so I might have the ability to review and make further medical decision making in his case. He voiced understanding. Thank you for this consultation.R74.01: Elevation of levels of liver transaminase levels US, LIVER KEVIN SCREEN, IFA, W/REFL TITER AND PATTERN IRON, TIBC AND FERRITIN PANEL HEPATITIS PANEL, ACUTE W/REFLEX TO CONFIRMATION COMPREHENSIVE METABOLIC PANEL MITOCHONDRIA M2 ANTIBODY (IGG), EIA LIVER KIDNEY MICROSOME (LKM-1) AB (IGG) CBC (INCLUDES DIFF/PLT) Return to Office Birgit Fajardo MD for Follow Up 15 at [facility] Rashmi Infante on 10/15/2022 at 03:45 PM to see Amberly Childress NP for Follow Up 15 at [facility] on or around 11/06/2022 Amberly Childress NP [address] [place] [address], [facility] [address], [place], [address], [place] - [facility] [employer] [facility] 07/15/2022 08:29:08 Endocrinology Note : [facility] [address], [facility] [address]GKJGOZOSAldo LEA (id #[id number], : 1980) Documents sent via fax will include the following message: This fax may contain sensitive and confidential personal health information that is being sent for the sole use of the intended recipient. Unintended recipients are directed to securely destroy any materials received. You are hereby notified that the unauthorized disclosure or other unlawful use of this fax or any personal health information is prohibited. To the extent patient information contained in this fax is subject to 42 CFR Part 2, this regulation prohibits unauthorized disclosure of these records. If you received this fax in error, please visit [email or web address] to notify the sender and confirm that the information will be destroyed. If you do not have internet access, please call to notify the sender and confirm that the information will be destroyed. Thank you for your attention and cooperation. [ID:[id number]][facility] [employer] [facility] [address] [place] [address] , Date: 10/15/2022RE: Aldo Lea, : 1980, PT ID #[id number] Childress [facility], I would like to thank you for referring Dustyvenkat Leonora to our practice for consultation and evaluation of FU ON LABS , on 10/15/2022. I have enclosed a copy of the office evaluation for your records. Once again, thank you for allowing me to participate in the care of this patient. 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 Hyperinsulinism - Onset: 10/15/2022 Male hypogonadism - Onset: 02/13/2021 Hyperlipidemia - Onset: 04/28/2022 Body mass index 30+ - obesity - Onset: 04/30/2021 Leukocytosis - Onset: 04/28/2022 Insomnia - Onset: 04/22/2022 Hypertensive disorder - Onset: 02/03/2021 Gastro-esophageal reflux disease with esophagitis - Onset: 02/03/2021 Erythrocytosis - Onset: 08/12/2022 Prediabetes - Onset: 10/15/2022 Unable to concentrate - Onset: 05/27/2021 Decreased testosterone level - Onset: 04/30/2021 Attention deficit hyperactivity disorder, 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 Weight gain - Onset: 07/13/2022 Elevated liver enzymes level - Onset: 07/13/2022 Allergies: Reviewed Allergies CODEINE: - rash Medications: Reviewed Medications NameDate Source Contrave 8 mg-90 mg tablet,extended releaseTake 2 tablet(s) twice a day by oral route before meals for 90 days.10/15/22 prescribed Birgit Fajardo MD lisinopriL 20 mg tabletTAKE 1 TABLET BY MOUTH EVERY DAY08/07/22 filled surescripts metFORMIN ER 500 mg tablet,extended release 24 hrTake 1 tablet(s) twice a day by oral route before meals for 90 days.10/15/22 prescribed Birgit Fajardo MD omeprazole 40 mg capsule,delayed releaseTAKE 1 CAPSULE BY MOUTH DAILY10/06/22 filled surescripts Vitamin B1207/13/22 entered Josefa Velasquez RN Family History:Family History not reviewed (last reviewed 07/13/2022) Father - No current problems or disability Mother - Heart disease Social History:Social History not reviewed (last reviewed 07/13/2022) Diet and ExerciseWhat type of diet are you following?: RegularDo you have any dietary restrictions?: NoWhat is your exercise level?: Moderate (Notes: 5 days a week)Substance UseDo you or have you ever smoked tobacco?: Never smokerDo you or have you ever used any other forms of tobacco or nicotine?: NoHas tobacco cessation counseling been provided?: NoWhat is your level of alcohol consumption?: OccasionalHave you ever been counseled for unhealthy alcohol use?: NoDo you use any illicit or recreational drugs?: NoWhat is your level of caffeine consumption?: ModerateHome and EnvironmentWhere do you live?: Multi-level houseDo you have smoke and carbon monoxide detectors in your home?: YesAre you passively exposed to smoke?: NoDo you use sunscreen routinely?: YesAdvance DirectiveWhat is your code status?: Full CodeDo you have a medical power of civil rights attorney?: NoPublic Health and TravelHave you recently traveled abroad?: NoIn the 14 days before symptom onset, have you had close contact with a laboratory-confirmed COVID-19 while that case was ill?: NoIn the 14 days before symptom onset, have you had close contact with a person who is under investigation for COVID-19 while that person was ill?: NoEducation and OccupationWhat is your 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 He was following Dr. Ramírez for management of his testosterone therapy. He was getting phlebotomies a few times in the past. He is currently taking 0.8 CC IM weekly of cypionate. He has bloodwork to complete- he is not going to see Dr. Plata until December. As far as symptoms he is hungry all the time and he is craving sweets/sugars all the time. He quit taking vyvance. He was switched to adderall and doesn't need this as much. 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 He and meal prep a lot.He does use low calorie bread. He does eat apples more regularly and more fruits/ melons/ cantelope and berries. He took wegovy before when he was with Krystal Manjarrez- he was down to 255 pounds and for the last year 265 pounds and now up to 278 pounds. labs from 07/30:TSH of 0.93 uIU/mlFT4 of 1.3 ng/dLLH/FSH low from T therapyFT3 of 3.5 pg/MLcortisol 0.9 ug/dL -normal DST (dexa was 354 ug/mL)prolactin normalinsulin 44.5 uu/mlTPO 1 IU/mlANA negH/H high 17.5/53.1LKM/huang negCr 1.4 mg/dLglucose 94 mg/dLcalcium 9.9 mg/DLtestosterone 649 ng/dLhepatitis negiron sat 38%Review of Systems:ROS as noted in the HPIPhysical ExamConstitutional:General Appearance: not anxious/nervous, no sweating, andoverweight. Level of Distress: no acute distress. Eyes:Lids and Conjunctivae: no discharge, pallor, lid lag, or periorbital edema and non-injected. Neck:Neck: supple, trachea midline, no masses, and full range of motion. Thyroid: no enlargement or nodules and non-tender. Neck vessels: no carotid bruits or thyroid bruits. Lymph Nodes: no anterior cervical LAD, posterior cervical LAD, submandibular LAD, submental LAD, preauricular LAD, or supraclavicular LAD. Cardiovascular:Apical Impulse: not displaced. Heart Auscultation: normal S1 and S2; no murmurs, rubs, or gallops; and regular rate and rhythm. Lungs:Auscultation: no wheezing, rales/crackles, or rhonchi and breath sounds normal, good air movement, and clear to auscultation. Psychiatric:Mental Status: normal mood and affect, no diffuse anxiety or paranoid ideations, and active and alert.Procedure DocumentationNone recordedAssessment/Plan1. Hyperinsulinism-insulin elevated- will trial on metformin ER 500 mg twice daily with meals. Patient previously on wegovy and feels hunger and sweet tooth are worse. He is struggling with his portion control. Discussed carb counting and how to read food labels. Recommended patient to utilize the diabetesfoodhub.com from the ADA website to help with food preparation as this presents ideal carb content per meal so this will make carb counting much easier for patient. Recommended he incorporate natural insulin sensitizers such as pears, apples, cinnamon, darya and sweet potatoes to help mobilize his endogenous insulin. Recommended up to 150 minutes of moderate level activity/exercise weekly.E16.1: Other hypoglycemia metformin ER 500 mg tablet,extended release 24 hr - Take 1 tablet(s) twice a day by oral route before meals for 90 days. Qty: (180) tablet Refills: 3 Pharmacy: [facility] #[id number] INSULIN HEMOGLOBIN A1C COMPREHENSIVE METABOLIC PANEL LIPID PANEL, STANDARD TSH T4, FREE 2. Male hypogonadism-Due to secondary erythrocytosis would recommend patient go on a hormone holiday. He is feeling irritable and not really seeing any benefit from hormone therapy. He is only taking anastrazole every 2 weeks and discussed it really works best if taken eveyr 3 days or twice weekly so estrogen is likely playing a role in his irritability. He does have referral to see Dr. Plata but cannot get in until December so patient is willing to see how his numbers are off therapy since he was borderline before going onto testosterone therapy.E29.1: Testicular hypofunction TESTOSTERONE, FREE, BIOAVAILABLE AND TOTAL, MS CBC (INCLUDES DIFF/PLT) ESTRADIOL 3. Weight gain-DST normal and no evidence of hypercortisolism. Will trial on contrave for appetite suppression and provided information on AIP diet- goal is to reduce inflammatory foods and to stick to nonstarchy carbs and healthy protein up to 2800 calories a day on active days and up to 2300 calories a day on sedentary days. Spent up to 28 minutes preparing to see the patient (eg, review of tests), obtaining and/or reviewing separately obtained history, performing a medically appropriate examination and evaluation, counseling and educating the patient, ordering medications, tests, along with documenting clinical information in the electronic health record, independently interpreting results and communicating results to the patient. RTC in 3-4 months. Patient was provided a handwritten lab order which contains our fax number. If he chooses to go outside of the [facility] system to obtain labwork he was advised to provide our fax number and my information to the lab he will be obtaining labwork from in order to have his labs properly forwarded over for me to review so there is no loss of follow up due to use of outside network. He was also advised to contact our clinic informing us that he has completed his labwork so we are aware we will need to reach out to the appropriate laboratory to request his results be forwarded to us so I might have the ability to review and make further medical decision making in his case. He voiced understanding.R63.5: Abnormal weight gain Contrave 8 mg-90 mg tablet,extended release - Take 2 tablet(s) twice a day by oral route before meals for 90 days. Qty: (360) tablet Refills: 0 Pharmacy: [facility] #[id number] Return to Office to see Amberly Childress NP for Follow Up 15 at [facility] [place] on or around 11/06/2022 Birgit Fajardo MD for Follow Up 15 at [facility] Sumit Infante on 01/21/2023 at 02:00 PM Amberly Childress NP [address] [facility] [address], [place], [address], [facility] 10/16/2022 08:18:31 Procedures Surgical History Date Name Laterality Status Provider Name and Address Organization Details Recorded Time 9 repair in forearm completed Not Available [facility] 07/08/2022 10:41:45 Imaging Results None recorded. Procedure Notes None recorded. Medical Equipment None Reported. Allergies Allergen ID Allergen Name Allergen Category Reaction Reaction Severity Criticality Documentation Date Start Date Code Code System Note Provider Name and Address Organization Details Recorded Time 22072 codeine medicatio n Not available Not available Not available 07/08/2022 2670 RxNorm rash Not Available [facility] 10:45:13 Medications Name Sig Start Date Stop Date Status Note LastModified by Organization Details LastModified Time amoxicillin 500 mg capsule TK ONE C PO TID 02/03 completed Not Available Not Available Not Available anastrozole 1 mg tablet TAKE 1 TABLET BY MOUTH EVERY 2 WEEKS 02/03 completed Not Available Not Available Not Available prednisone 10 mg tablet 10/15 completed Not Available Not Available Not Available lisinopril 20 mg tablet TAKE 1 TABLET BY MOUTH EVERY DAY 2023 active Not Available Not Available Not Avai lable prednisone 20 mg tablet TAKE 3 TABLETS BY MOUTH EVERY DAY FOR 5 DAYS 04/30 completed Not Available Not Available Not Available phentermine 37.5 mg tablet Take 1 tablet every day by oral route. active Not Available Not Available No t Available amlodipine 5 mg tablet TAKE 1 TABLET BY MOUTH EVERY DAY 02/03 completed Not Available Not Available Not Available omeprazole 40 mg capsule,del ayed release active Not Available Not Available Not Available dextroamphe tamine-amph etamine 30 mg tablet TAKE 1 TABLET BY MOUTH EVERY DAY 10/15 completed Not Available Not Available Not Available ciclopirox 8 % topical solution BILLY TO NAIL D UTD 02/03 completed Not Available Not Available Not Available amoxicillin 875 mg tablet TAKE 1 TABLET BY MOUTH TWICE DAILY FOR 7 DAYS 06/23 completed Not Available Not Available Not Available dicyclomine 20 mg tablet TAKE 1 TABLET BY MOUTH FOUR TIMES DAILY NEEDED FOR ABDOMINAL CRAMPING 12/22 completed Not Available Not Available Not Available dexamethaso ne 1 mg tablet take dexa tablet at 10 pm night before 8 am cortisol 10/15 completed Not Available Not Available Not Available amlodipine 10 mg tablet TAKE 1 TABLET BY MOUTH DAILY 02/03 completed Not Available Not Available Not Available benzonatate 100 mg capsule TAKE ONE CAPSULE BY MOUTH THREE TIMES DAILY 04/30 completed Not Available Not Available Not Available cyanocobala min (vit B-12) 1,000 mcg/mL injection solution 07/13 completed Not Available Not Available Not Available indomethaci n 50 mg capsule TK 1 C PO TID PRN 02/03 completed Not Available Not Available Not Available Adderall XR 10 mg capsule,ext ended release Take 1 capsule every day by oral route. 05/12 completed Not Available Not Available Not Available allopurinol 300 mg tablet TK 1 T PO QD 02/03 completed Not Available Not Available Not Available dextroamphe tamine-amph etamine ER 30 mg 24hr capsule,ext end release TAKE 1 CAPSULE BY MOUTH EVERY DAY active Not Available Not Available No t Available oxandrolone 2.5 mg tablet TAKE 1 TABLET BY MOUTH TWICE DAILY 10/13 completed Not Available Not Available Not Available ondansetron 4 mg disintegrat ing tablet DISSOLVE ONE TABLET BY MOUTH THREE TIMES DAILY NEEDED FORNAUSEA AND VOMITING 10/15 completed Not Available Not Available Not Available metformin ER 500 mg tablet,exte nded release 24 hr TAKE 1 TABLET BY MOUTH TWICE DAILY BEFORE MEALS active Not Available Not Available No t Available phentermine 37.5 mg capsule Take 1 capsule every day by oral route for 30 days. active Not Available Not Available No t Available amoxicillin 875 mg-potassiu m clavulanate 125 mg tablet TAKE 1 TABLET BY MOUTH EVERY 12 HOURS FOR 10 DAYS 05/27 completed Not Available Not Available Not Available Ventolin HFA 90 mcg/actuati on aerosol inhaler INL 2 PFS PO BID PRN 02/03 completed Not Available Not Available Not Available Wal-phed 30 mg tablet TAKE 1 TO 2 TABLETS BY MOUTH EVERY 4 TO 6 HOURS NEEDED 04/22 completed Not Available Not Available Not Available rosuvastati n 5 mg tablet TAKE 1 TABLET BY MOUTH EVERY DAY 07/13 completed Not Available Not Available Not Available bupropion HCl XL 300 mg 24 hr tablet, extended release TAKE 1 TABLET BY MOUTH EVERY DAY 04/30 completed Not Available Not Available Not Available bupropion HCl XL 150 mg 24 hr tablet, extended release TK 1 T PO QD 02/03 completed Not Available Not Available Not Available Vitamin B12 active Not Available Not A vailable Not Available Vyvanse 30 mg capsule Take 1 capsule every day by oral route for 30 days. 10/29 completed Not Available Not Available Not Available Vyvanse 40 mg capsule TAKE 1 CAPSULE BY MOUTH EVERY DAY 04/22 completed Not Available Not Available Not Available Contrave 8 mg-90 mg tablet,exte nded release TAKE 2 TABLETS BY MOUTH TWICE DAILY BEFORE MEALS active Not Available Not Available No t Available Saxenda 3 mg/0.5 mL (18 mg/3 mL) subcutaneou s pen injector Inject by subcutane ous route for 30 days. 04/22 completed Not Available Not Available Not Available Wegovy 2.4 mg/0.75 mL subcutaneou s pen injector Inject 2.4 mg every week by subcutane ous route. 08/13 completed Not Available Not Available Not Available Wegovy 1.7 mg/0.75 mL subcutaneou s pen injector Inject 1.7 mg every week by subcutane ous route. 07/09 completed Not Available Not Available Not Available Wegovy 1 mg/0.5 mL subcutaneou s pen injector ADMINISTE R 0.5 ML UNDER THE SKIN EVERY WEEK 05/27 completed Not Available Not Available Not Available Wegovy 0.25 mg/0.5 mL subcutaneou s pen injector INJECK 0.25 MG(0.5 ML) UNDER THE SKIN EVERY WEEK active Not Available Not Available No t Available Wegovy 0.5 mg/0.5 mL subcutaneou s pen injector Inject 0.5 mg every week by subcutane ous route. 05/27 completed Not Available Not Available Not Available Vitals Date Recorded Body mass index (BMI) Body height Oxygen saturation Oxygen saturation in Arterial blood by Pulse oximetry Heart rate Body temperature Body weight Systolic blood pressure Diastolic blood pressure Provider Name and Address Organization Details Last Updated DateTime 2 33.2 kg/m2 193.04 cm 98 % 98 % 69 /min 98.1 [degF] 601417. 72 g 126 mm[Hg] 84 mm[Hg] Not Available [facility] 3 10:42:14 Date Recorded Body mass index (BMI) Body height Oxygen saturation Oxygen saturation in Arterial blood by Pulse oximetry Heart rate Respiratory rate Body temperature Body weight Systolic blood pressure Diastolic blood pressure Provider Name and Address Organization Details Last Updated DateTime 2 33.5 kg/m2 193.04 cm 98 % 98 % 72 /min 18 /min 98.3 [degF] 508658. 9 g 132 mm[Hg] 80 mm[Hg] Not Available [facility] 3 10:42:14 Date Recorded Body height Body mass index (BMI) Body weight Body temperature Heart rate Oxygen saturation Oxygen saturation in Arterial blood by Pulse oximetry Systolic blood pressure Diastolic blood pressure Provider Name and Address Organization Details Last Updated DateTime 3 193.04 cm 34 kg/m2 234073. 27 g 97.9 [degF] 85 /min 98 % 98 % 160 mm[Hg] 100 mm[Hg] Fiorella barclay CMA [place] [facility] [place] [employer] [facility] 3 17:02:39 Date Recorded Systolic blood pressure Diastolic blood pressure Systolic blood pressure Diastolic blood pressure Provider Name and Address Organization Details Last Updated DateTime 07/08/2022 140 mm[Hg] 90 mm[Hg] 140 mm[Hg] 90 mm[Hg] Hussein Childress NP [address], [facility] [address], [place], [address] , [place] [employer] 3 18:38:03 Date Recorded Body height Body mass index (BMI) Body weight Body temperature Respiratory rate Heart rate Systolic blood pressure Diastolic blood pressure Provider Name and Address Organization Details Last Updated DateTime 3 193.04 cm 34.4 kg/m2 541459. 77 g 98.3 [degF] 16 /min 76 /min 141 mm[Hg] 88 mm[Hg] Josefa Velasquez RN [place] [employer] [facility] [employer] 3 17:05:18 Date Recorded Body height Body mass index (BMI) Body weight Body temperature Heart rate Systolic blood pressure Diastolic blood pressure Provider Name and Address Organization Details Last Updated DateTime 3 193.04 cm 33.9 kg/m2 327891. 83 g 99 [degF] 79 /min 143 mm[Hg] 86 mm[Hg] DANIELLE Starr [employer] [facility] [employer] 3 17:11:57 Social History Question Answer Notes LastModified by Organizat ion Details LastModified Time Tobacco Smoking Status Never Smoker Not Available [facility] 07/08/2022 10:40:42 Do You Have An Advance Directive? No [id number] Information not available 07/08/2022 What Is Your Level Of Alcohol Consumption? Occasional MIGRATION.[id number] 9872 Information not available 07/08/2022 What Is Your Level Of Caffeine Consumption? Moderate MIGRATION.[id number] 6136 Information not available 07/08/2022 What Is Your Code Status? Full Code [id number] Information not available 07/08/2022 In The 14 Days Before Symptom Onset, Have You Had Close Contact With A Laboratory-confir med COVID-19 While That Case Was Ill? No [id number].[id number] 8427 Information not available 07/08/2022 In The 14 Days Before Symptom Onset, Have You Had Close Contact With A Person Who Is Under Investigation For COVID-19 While That Person Was Ill? No MIGRATION.590663 1953 Information not available 07/08/2022 What Type Of Diet Are You Following? REGULAR MIGRATION.[id number] 2158 Information not available 07/08/2022 What Is Your Occupation? [employer] MIGRATION.[id number] 7796 Information not available 07/08/2022 Have There Been Any Changes To Your Family Or Social Situation? No MIGRATION.768572 2364 Information not available 07/08/2022 Do You Use Insect Repellent Routinely? Yes MIGRATION.505523 7111 Information not available 07/08/2022 Where Do You Live? [facility] MIGRATION.120250 8024 Information not available 07/08/2022 Do You Have A Medical Power Of [employer]? No MIGRATION.604387 4741 Information not available 07/08/2022 Have You Ever Been Counseled For Unhealthy Alcohol Use? No MIGRATION.251095 7023 Information not available 07/08/2022 Do You Have Any Pets? Yes MIGRATION.495365 2770 Information not available 07/08/2022 What Is Your Relationship Status? MIGRATION.651907 1036 Information not available 07/08/2022 Do You Have Smoke And Carbon Monoxide Detectors In Your Home? Yes MIGRATION.263692 6525 Information not available 07/08/2022 Are You Passively Exposed To Smoke? No MIGRATION.336866 1330 Information not available 07/08/2022 Are There Any Smokers In Your House? No MIGRATION.527457 1533 Information not available 07/08/2022 Do You Feel Stressed (tense, Restless, Nervous, Or Anxious, Or Unable To Sleep At Night)? [id number] MIGRATION.994153 6243 Information not available 07/08/2022 Do You Use Any Illicit Or Recreational Drugs? No MIGRATION.888035 2303 Information not available 07/08/2022 Do You Use Sunscreen Routinely? Yes MIGRATION.896473 8255 Information not available 07/08/2022 Has Tobacco Cessation Counseling Been Provided? No MIGRATION.936896 2884 Information not available 07/08/2022 Have You Recently Traveled Abroad? No MIGRATION.468936 7646 Information not available 07/08/2022 Are You Currently In School? No MIGRATION.386794 8131 Information not available 07/08/2022 Do You Have Any Dietary Restrictions? No MIGRATION.609513 9798 Information not available 07/08/2022 Do You Or Have You Ever Used Any Other Forms Of Tobacco Or Nicotine? No MIGRATION.195835 0753 Information not available 07/08/2022 Sex: Male Functional Status Question Answer Note LastModified by Organizat ion Details LastModified Time What is your exercise level? Moderate 5 days a week [id number].[id number] Information not available 07/08/2022 Mental Status None recorded. Family History Relationship Description Onset Age of this Age Resolved Age Notes LastModified by Organization Details LastModified Time Father No current problems or disability [id number] Not available 07/08/2022 10:41:47 Mother Heart disease [id number] Not available 07/08/2022 10:41:47 Medical History Condition Response BLINDNESS N CYSTITIS N RHEUMATIC FEVER N BLADDER PROBLEMS N KIDNEY STONES N Enlarged Prostate N MRSA N SLEEP APNEA N INFECTIOUS DISEASE N HEART ARRHYTHMIA N PROSTATE N LUNG DISEASE/DISORDER N INSOMNIA N HISTORY OF DRUG ABUSE N COPD N RADIATION / CHEMOTHERAPY N HIGH CHOLESTEROL / HYPERLIPIDEMIA N HYPERTHYROIDISM N UTI N BLOOD DISEASES N EDEMA N HYPOTHYROIDISM N SHINGLES N BACK / NECK PROBLEMS N BOWEL PROBLEMS N DEPRESSION (INCLUDING POST ) N HAVE YOU BEEN HOSPITALIZED OR SEEN IN [facility] ER IN THE PAST YEAR ? N STROKE/TIA N THYROID DISEASE N BENIGN PROSTATIC HYPERPLASIA N DIALYSIS N OBESITY N GERD/NAUSEA N ANEURYSM N OSTEOPOROSIS N Increased Urination N URINARY/BLADDER/KIDNEY PROBLEMS N CORONARY ARTERY DISEASE (CAD) N ARTHRITIS N USE OF BLOOD THINNERS N NO SIGNIFICANT PAST MEDICAL HISTORY N DIABETES, TYPE N EMPHYSEMA N GASTROINTESTINAL DISORDER N PARKINSON N GASTROINTESTINAL BLEEDING N BLOOD CLOTS N Difficulty Urinating N ASTHMA N HEPATITIS / LIVER DISEASE N CATARACTS N GOUT N SLEEP DISORDER N ALZHEIMER'S DISEASE N ERECTILE DYSFUNCTION N HERPES N HEADACHES/MIGRAINES N SEIZURES/EPILEPSY N GI PROBLEMS N Low Testosterone N HEART MURMUR N PACEMAKER N DIZZINESS N HEART DISEASE/HEART PROBLEMS N AIDS/HIV N KIDNEY DISEASE N MULTIPLE SCLEROSIS N LIVER DISEASE N MALE HYPOGONADISM N HYPERTENSION Y CANCER: SPECIFY Y TOURETTE'S N BLOOD TRANSFUSION N ANESTHESIA COMPLICATIONS N ANEMIA/BLOOD DISORDER N ATRIAL FIBRILLATION N AUTOIMMUNE DISEASE N TUBERCULOSIS N GLAUCOMA N Past Encounters Encounter ID Performer Location Encounter Start Date Encounter Closed Date Diagnosis/Indication Diagnosis SNOMED-CT Code Diagnosis ICD10 Code Diagnosis Note [id number] [facility] Augusto bryan [address] [facility] [place] [address] 02/03/2021 00:00:00 02/04/2021 08:12:04 [id number] [facility] [place] [address] [place] [address] 02/25/2021 00:00:00 02/25/2021 16:06:18 [id number] [facility] [place] [address] [place] [address] 04/30/2021 00:00:00 04/30/2021 15:45:29 [id number] [facility] [place] [address] [place] [address] 05/27/2021 00:00:00 05/27/2021 15:37:59 [id number] [facility] [place] [address] [place] [address] 07/09/2021 00:00:00 07/09/2021 08:48:31 [id number] [facility] [place] [address] [place] [address] 08/13/2021 00:00:00 08/13/2021 15:01:06 [id number] [facility] [place] [address] [place] [address] 10/13/2021 00:00:00 10/13/2021 13:32:37 [id number] [facility] [place] [address] [place] [address] 12/22/2021 00:00:00 12/22/2021 16:25:21 [id number] [facility] [place] [address] [place] [address] 04/22/2022 00:00:00 04/22/2022 18:20:09 [id number] Amberly Childress, CHRISSY [facility] [place] [address] [place] [address] 07/08/2022 16:38:32 07/08/2022 18:09:26 Hypertensive disorder 50758240 I10 Up today. 140/90 bilaterall y.Lisinopr il 20 mg po daily. Decrease sodium and caffeine. No energy drinks. Has been on testostero ne. 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 Has been doing ok on adderall. Not to be on caffeine or preworkout with medication . Male hypogonadism 583038 06 E29.1 Has been on testostero ne. Has appt with Dr. Fajardo. Was seeing Dr. Ramírez. Gastro-eso phageal reflux disease with esophagitis 991224896 K21.00 Hyperlipidemia 55986135 E78.5 rosuvastat in 5 mg po nightly. Low fat diet. Insomnia 002499362 G47.0 0 work on sleep hygeine. [id number] Birgit Fajardo MD [facility] [place] [address] [place] [address] 07/13/2022 16:36:39 07/13/2022 18:04:01 Weight gain 1038927 R63.5 Will send for low dose dexa suppressio n testing to screen for hypercorti solic state. Will send for full thyroid panel and fasting glucose/in sulin to screen for hyperinsul inemia as he has struggled to lose weight over the past 4-5 years (daughter is 4 years old now)- even on testostero ne therapy he has not been able to lose the belly fat and hasn't gotten under 260 pounds. Will look into full hormone panel to assess for secondary causes of weight gain. Male hypogonadism 116471 06 E29.1 Send for full pituitary profile and SHBG to see if he has any underlying hyperprola ctinemia or FSH/LH elevation that would warrant further imaging or workup. He was /is getting T therapy through Dr. Ramírez but as taveras pay only and to note his H/H levels are higher range and ALT elevated on most recent labwork recommende d patient obtain an iron panel and liver function profile. Liver enzy mes level above reference range 366688996 R74.01 Send for liver u/s and autoimmune liver panel to screen for secondary causes of liver elevation. Spent up to 45 minutes preparing to see the patient (eg, review of tests), obtaining and/or reviewing separately obtained history, performing a medically appropriat e examinatio n and evaluation , counseling and educating the patient, ordering medication s, tests, along with documentin g clinical informatio n in the electronic health record, casimiroen jaceyy interpreti ng results and communicat ing results to the patient. RTC in 3 months. Patient was provided a handwritte n lab order which contains our fax number. If he chooses to go outside of the [facility] system to obtain labwork he was advised to provide our fax number and my informatio n to the lab he will be obtaining labwork from in order to have his labs properly forwarded over for me to review so there is no loss of follow up due to use of outside network. He was also advised to contact our clinic informing us that he has completed his labwork so we are aware we will need to reach out to the appropriat e laboratory to request his results be forwarded to us so I might have the ability to review and make further medical decision making in his case. He voiced understand ing. Thank you for this consultati on. [id number] Birgit Fajardo MD [facility] [place] [address] [place] [address] 10/15/2022 16:39:52 10/15/2022 17:43:58 Hyperinsulinism 29704714 E16.1 insulin elevated- will trial on metformin ER 500 mg twice daily with meals. Patient previously on wegovy and feels hunger and sweet tooth are worse. He is struggling with his portion control. Discussed carb counting and how to read food labels. Recommende d patient to utilize the diabetesfo [employer] from the ADA website to help with food preparatio n as this presents ideal carb content per meal so this will make carb counting much easier for patient. Recommende d he incorporat e natural insulin savings counselor s such as pears, apples, cinnamon, darya and sweet potatoes to help mobilize his endogenous insulin. Recommende d up to 150 minutes of moderate level activity/e xercise weekly. Male hypogonadism 737204 06 E29.1 Due to secondary erythrocyt osis would recommend patient go on a hormone holiday. He is feeling irritable and not really seeing any benefit from hormone therapy. He is only taking anastrazol e every 2 weeks and discussed it really works best if taken eveyr 3 days or twice weekly so estrogen is likely playing a role in his irritabili ty. He does have referral to see Dr. Plata but cannot get in until December so patient is willing to see how his numbers are off therapy since he was borderline before going onto testostero ne therapy. Weight gain 2283938 R63. 5 DST normal and no evidence of hypercorti solism. Will trial on contrave for appetite suppressio n and provided informatio n on AIP diet- goal is to reduce inflammato ry foods and to stick to nonstarchy carbs and healthy protein up to 2800 calories a day on active days and up to 2300 calories a day on sedentary days. Spent up to 28 minutes preparing to see the patient (eg, review of tests), obtaining and/or reviewing separately obtained history, performing a medically appropriat e examinatio n and evaluation , counseling and educating the patient, ordering medication s, tests, along with documentin g clinical informatio n in the electronic health record, independen tly interpreti ng results and communicat ing results to the patient. RTC in 3-4 months. Patient was provided a handwritte n lab order which contains our fax number. If he chooses to go outside of the [facility] system to obtain labwork he was advised to provide our fax number and my informatio n to the lab he will be obtaining labwork from in order to have his labs properly forwarded over for me to review so there is no loss of follow up due to use of outside network. He was also advised to contact our clinic informing us that he has completed his labwork so we are aware we will need to reach out to the appropriat e laboratory to request his results be forwarded to us so I might have the ability to review and make further medical decision making in his case. He voiced understand ing. Health Concerns Section Related Observation LastModified by Organization Detai ls LastModified Time None Recorded Concern Status LastModified by Organization Details LastModified Time None Recorded Advance Directives Directive N: Payers Encounter Date Sequence Insurance Name Policy Number Policy Bain Covered Member ID Bain Member ID Guarantor Name 07/08/2022 1 [id number] Aldo Lea [id number] Aldo Lea 07/13/2022 1 [id number] Aldo Lea [id number] Aldo Lea 10/15/2022 1 [facility] [id number] Aldo Lea [id number] Aldo Lea Notes Date Note Type Note Provider Name and Address Organization Details Recorded Time 07/08/2022 text/html Pt. here for 3 month follow up on ADHD, weight, htn, GERD, and labs. ADHD - Adderall 30 mg working but wears off. Has been interested in extended release Weight - Cant' lose weight. Has appt with hina fajardo. Htn - BP has been increased. Has appt with dr. Fajardo coming up. Home bp was good. Has been up and down. Was before a bit high. Has been having energy drink on top of adderall. Aware he needs to stop GERD - stable. Diet related. Has been meal prepping. Labs - Aware of results. Eating better for cardio. Amberly Childress NP [address] [address], [place], [address], [facility] [employer] 07/08/2022 18:39:45 07/13/2022 text/html 41 yo male comes in as referral by courtesy of Amberly Childress NP for management and evaluation of hypogonadism, fatigue, weight gain. testosterone on file at 1114 ng/dL from 04/29H/H .9 He was initially seeing Krystal Manjarrez NP in the past- he is not able to get under 260 pounds. The lowest weight he has ever been is 258 pounds and now up to 284 pounds He is very active at work and does work out regularly. He also diets. He was on 6 months of wegovy- and maxed out at 2.4 mg - started at 270 pounds and only able to get down to 260 pounds. He did try phentermine with the wegovy and did not really help later on-the first time he tried this he did respond. He has a high tolerance for caffeine. He was on vyvanse and then insurance changed and stopped this and onto adderall. The only thing he has noticed - tracking food and macros - if he kept his carbs under 100 grams a day he does well but if over 100 grams a day ends up craving more carbs. He did keto diet in the past and only got down to 260 pounds. He has always been on the larger side- he would like to get down to 250 pounds. He never care about the scales and unable to get lower than 260 pounds. 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 He has been off work for one month. He is at the gym 5-6 days a week. He did initially try lower weight/and pliometrics initially then went to heavy weight. He does get testosterone therapy through his urologist /Dr. Ramírez- takes anastrazole every other week and shot 0.8 cc IM every week. testosterone 390 ng/dL from 12/186/40/1 40Cr 1.48 mg/dLcal 10 mg/dLALT high at 52 U/LH/H 16.7/49.9B12/folate 355/6.2TSH of 1.43 uIU/ml Birgit Fajardo MD [address] [facility], [facility] [address], [place], [address], [facility] [employer] 07/13/2022 18:19:01 10/15/2022 text/html 42 yo male comes in for follow up in management of weight gain, hypogonadism found to have impaired fasting glucose. He was following Dr. Ramírez for management of his testosterone therapy. He was getting phlebotomies a few times in the past. He is currently taking 0.8 CC IM weekly of cypionate. He has bloodwork to complete- he is not going to see Dr. Plata until December. As far as symptoms he is hungry all the time and he is craving sweets/sugars all the time. He quit taking vyvance. He was switched to adderall and doesn't need this as much. 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 He and meal prep a lot.He does use low calorie bread. He does eat apples more regularly and more fruits/ melons/ cantelope and berries. He took wegovy before when he was with Krystal Manjarrez- he was down to 255 pounds and for the last year 265 pounds and now up to 278 pounds. labs from 07/30:TSH of 0.93 uIU/mlFT4 of 1.3 ng/dLLH/FSH low from T therapyFT3 of 3.5 pg/MLcortisol 0.9 ug/dL -normal DST (dexa was 354 ug/mL)prolactin normalinsulin 44.5 uu/mlTPO 1 IU/mlANA negH/H high 17.5/53.1LKM/huang negCr 1.4 mg/dLglucose 94 mg/dLcalcium 9.9 mg/DLtestosterone 649 ng/dLhepatitis negiron sat 38% Birgit Fajardo MD [address] [facility], [facility] [address], [place], [address], [place] [facility] [employer] [employer] 10/15/2022 20:28:14
[2024-08-01 20:08] LABS: Alanine Aminotransferase 90 U/L (6-50); Albumin Level 4.7 g/dL (3.5-5.1); Alkaline Phosphatase 78 U/L (38-126); Anion Gap 8 mmol/L (4-12); Aspartate Amino Transferase 81 U/L (17-59); Bilirubin,Total 0.7 mg/dL (0.2-1.3); Blood Urea Nitrogen 21 mg/dL (9-20); Calcium 9.5 mg/dL (8.4-10.2); Carbon Dioxide 24 mmol/L (22-30); Chloride 104 mmol/L (98-107); Cholesterol 175 mg/dL (0-200); Estimated Glomerular Filt Rate 57; Glucose 125 mg/dL (65-110); HDL Direct 28 mg/dL; Potassium 4.5 mmol/L (3.4-5.0); Sodium 136 mmol/L (137-145); Triglycerides 481 mg/dL (<150); Uric Acid 8.2 mg/dL (3.5-8.5)
[2024-08-01 20:15] LABS: Hematocrit 51.1 % (42.0-52.0); Hemoglobin 17.3 g/dL (14.0-18.0); Mean Corpuscular HGB Conc 33.9 g/dl (32-36); Mean Corpuscular Hemoglobin 31.7 pg (26-34); Mean Corpuscular Volume 93.8 fl (80-100); Mean Platelet Volume 11.9 fl (7.4-10.4); Platelet Count Result 225 k/mm3 (150-375); Red Blood Count 5.45 M/mm3 (4.6-6.20); White Blood Count 9.1 K/mm3 (4.5-10.0)
[2024-08-01 20:19] LABS: Hemoglobin A1C 5.3 % (<5.7); LDL Cholesterol Direct 74 mg/dL
[2024-08-01 20:21] LABS: Rheumatoid Factor < 12.0 IU/ML (<12)
[2024-08-02 16:59] LABS: ANA Cascade Screen NEGATIVE (NEGATIVE)
== END 2024-08-01 15:33 | disposition home or self-care (01) ==
LOC: ANHBWCLAB 15:34
PROVIDERS: PCP Nurse Practitioner Adult Health; Visit Provider Nurse Practitioner Adult Health
DX: M10.9 Gout, unspecified (principal); Z13.9 Encounter for screening, unspecified; I10 Essential (primary) hypertension; E66.9 Obesity, unspecified; Z82.61 Family history of arthritis
CPT/HCPCS: 36415; 80053; 80061; 82607; 83036; 83516; 84443; 84550; 85027; 86038; 86225; 86235; 86430